=== PATIENT | female | born 1975 | race Caucasian/White ===

== ENCOUNTER 2017-03-19 15:38 | Emergency (ER) | payer MEDICARE, OTHER ==
[2017-03-19 16:26] LABS: #Basophils 0.1 thou/uL (0.0-0.2); #Eosinphils 0.1 thou/uL (0.0-0.7); #Lymphocytes 2.1 thou/uL (1.20-3.40); #Monocytes 0.6 thou/uL (0.11-0.59); #Neutrophils 5.7 thou/uL (1.40-6.50); %Basophils 0.8 % (0.0-1.0); %Eosinophils 1.3 % (0.0-10.0); %Lymphocytes 24.3 % (21.0-51.0); %Monocytes 6.5 % (0.0-10.0); Hematocrit 36.7 % (36.0-47.0); Mean Platelet Volume 9.8 fL (7.4-10.4); Red Blood Cell (RBC) Count 4.77 mill/uL (4.20-5.40); White Blood Cell (WBC) Count 8.5 thou/uL (4.8-10.8)
[2017-03-19 16:45] LABS: ALT (SGPT) Less than 7 U/L (8-55); AST (SGOT) 9 U/L (5-34); Alkaline Phosphatase 82 U/L (40-150); Anion Gap 14 mmol/L (10-20); BUN (Urea Nitrogen) 13 mg/dL (7.0-18.7); Bilirubin, Total 0.3 mg/dL (0.2-1.2); Calc. Creatinine Clearance 0 mL/min (70-130); Calcium 8.9 mg/dL (7.8-10.44); Carbon Dioxide 22 mmol/L (22-29); Chloride 107 mmol/L (98-107); Estimated GFR-MDRD 90; Globulin 3.5 g/dL (2.4-3.5); Protein, Total 7.7 g/dL (6.0-8.3)
[2017-03-19] MEDS ORDERED: Metoclopramide HCl 10 MG/2 ML VIAL ONE (17:51)
[2017-03-19] MEDS ORDERED: Ketorolac Tromethamine 30 MG/ML VIAL ONE (18:38)
[2017-03-19] MEDS ORDERED: Divalproex Sodium DR 500 MG TAB PO SCH (19:30)
== END 2017-03-19 20:08 | disposition home or self-care (01) ==
LOC: ERS 15:38
DX: G40.909 Epilepsy, unspecified, not intractable, without status epilepticus (principal); E11.9 Type 2 diabetes mellitus without complications; F90.9 Attention-deficit hyperactivity disorder, unspecified type; J45.909 Unspecified asthma, uncomplicated
CPT/HCPCS: 36415; 36416; 80053; 80164; 85025; 96361; 96374; 96375; J1885; J2765

== ENCOUNTER 2017-04-14 15:24 | Emergency (ER) | payer MEDICARE, OTHER ==
--- NOTE | 2017-04-14 17:23 | RAD ---
RIGHT HIP 2 VIEWS: Date: 04/14/17 HISTORY: Right hip pain. FINDINGS/IMPRESSION: No fracture, dislocation, or bony destruction is seen. POS: [facility]
[2017-04-14] MEDS ORDERED: Ketorolac Tromethamine 30 MG/ML VIAL ONE (17:24)
--- NOTE | 2017-04-14 17:24 | RAD ---
RIGHT LEG 2 VIEWS: Date: 04/14/17 HISTORY: Right leg pain. FINDINGS/IMPRESSION: The right tibia and fibula are intact. POS: [facility]
== END 2017-04-14 18:05 | disposition home or self-care (01) ==
LOC: ERS 15:24
DX: S73.101A Unspecified sprain of right hip, initial encounter (principal); F90.9 Attention-deficit hyperactivity disorder, unspecified type; J45.909 Unspecified asthma, uncomplicated; E11.9 Type 2 diabetes mellitus without complications; W01.0XXA Fall on same level from slipping, tripping and stumbling without subsequent striking against object, initial encounter
CPT/HCPCS: 96372; J1885

== ENCOUNTER 2017-05-29 20:54 | Emergency (ER) | payer MEDICARE, OTHER ==
[2017-05-29 21:29] LABS: #Basophils 0.1 thou/uL (0.0-0.2); #Eosinphils 0.1 thou/uL (0.0-0.7); #Lymphocytes 2.5 thou/uL (1.20-3.40); #Monocytes 0.8 thou/uL (0.11-0.59); #Neutrophils 12.1 thou/uL (1.40-6.50); %Basophils 0.7 % (0.0-1.0); %Eosinophils 0.7 % (0.0-10.0); %Lymphocytes 16.3 % (21.0-51.0); %Monocytes 5.1 % (0.0-10.0); Hematocrit 38.9 % (36.0-47.0); Red Blood Cell (RBC) Count 4.91 mill/uL (4.20-5.40); White Blood Cell (WBC) Count 15.6 thou/uL (4.8-10.8)
[2017-05-29 21:55] LABS: Prothrombin Time 13.5 SEC (12.0-14.7)
[2017-05-29 21:56] LABS: PTT 25.5 SEC (22.9-36.1)
[2017-05-29 21:56] LABS: ALT (SGPT) 11 U/L (8-55); AST (SGOT) 27 U/L (5-34); Alkaline Phosphatase 75 U/L (40-150); Anion Gap 14 mmol/L (10-20); BUN (Urea Nitrogen) 18 mg/dL (7.0-18.7); Bilirubin, Total 0.2 mg/dL (0.2-1.2); Calc. Creatinine Clearance 0 mL/min (70-130); Calcium 8.8 mg/dL (7.8-10.44); Carbon Dioxide 21 mmol/L (22-29); Chloride 106 mmol/L (98-107); Estimated GFR-MDRD 90; Globulin 3.8 g/dL (2.4-3.5); Protein, Total 7.7 g/dL (6.0-8.3)
[2017-05-29 21:58] LABS: Bilirubin Negative (Negative); Blood, Urine Negative (Negative); Glucose, Urine (Dipstick) Negative (Negative); Ketone, Urine Negative (Negative); Nitrite Negative (Negative); Protein, Urine (Dipstick) Negative (Neg-Trace); Urobilinogen 0.2 mg/dL (0.2-1.0)
[2017-05-29] MEDS ORDERED: Acetaminophen 500 MG TAB ONE (22:47)
== END 2017-05-29 23:36 | disposition home or self-care (01) ==
LOC: ERS 20:54
DX: K60.2 Anal fissure, unspecified (principal); E11.9 Type 2 diabetes mellitus without complications; F84.0 Autistic disorder; J45.909 Unspecified asthma, uncomplicated; F90.9 Attention-deficit hyperactivity disorder, unspecified type; Z86.73 Personal history of transient ischemic attack (TIA), and cerebral infarction without residual deficits
CPT/HCPCS: 36415; 80053; 81003; 81025; 82274; 85025; 85610; 85730; 86850; 86900; 86901; 99283

== ENCOUNTER 2017-06-07 15:45 | Inpatient (IN) | payer MEDICARE, OTHER ==
[2017-06-07 16:33] LABS: #Basophils 0.1 thou/uL (0.0-0.2); #Eosinphils 0.1 thou/uL (0.0-0.7); #Lymphocytes 2.4 thou/uL (1.20-3.40); #Monocytes 0.6 thou/uL (0.11-0.59); #Neutrophils 5.8 thou/uL (1.40-6.50); %Basophils 0.6 % (0.0-1.0); %Eosinophils 1.6 % (0.0-10.0); %Lymphocytes 26.7 % (21.0-51.0); %Monocytes 6.7 % (0.0-10.0); Hematocrit 36.3 % (36.0-47.0); Red Blood Cell (RBC) Count 4.58 mill/uL (4.20-5.40)
[2017-06-07 16:46] LABS: Bilirubin Negative (Negative); Blood, Urine Negative (Negative); Glucose, Urine (Dipstick) Negative (Negative); Ketone, Urine Trace mg/dL (Negative); Nitrite Positive (Negative); Protein, Urine (Dipstick) Negative (Neg-Trace); Urobilinogen 0.2 mg/dL (0.2-1.0)
[2017-06-07 16:48] LABS: Bacteria/HPF 4+ HPF (None Seen); Hyaline Casts/LPF 4-6 HYALINE CAST LPF (0-3 Hyaline)
[2017-06-07 16:52] LABS: Lactic Acid - Sepsis 2.8 mmol/L (0.5-2.2)
[2017-06-07 16:53] LABS: ALT (SGPT) 9 U/L (8-55); AST (SGOT) 9 U/L (5-34); Alkaline Phosphatase 77 U/L (40-150); Anion Gap 13 mmol/L (10-20); BUN (Urea Nitrogen) 16 mg/dL (7.0-18.7); Bilirubin, Total 0.2 mg/dL (0.2-1.2); Calc. Creatinine Clearance 0 mL/min (70-130); Calcium 9.3 mg/dL (7.8-10.44); Carbon Dioxide 24 mmol/L (22-29); Chloride 105 mmol/L (98-107); Estimated GFR-MDRD 90; Globulin 3.7 g/dL (2.4-3.5)
[2017-06-07] MEDS ORDERED: Ondansetron HCl/PF 4 MG/2 ML Vial ONE (17:34)
--- NOTE | 2017-06-07 17:41 | RAD ---
PORTABLE UPRIGHT FRONTAL CHEST RADIOGRAPH: Date: 06/07/17 COMPARISON: 12/12/16. HISTORY: Seizures, abdominal pain. FINDINGS: Lungs are clear. Heart and mediastinal contours unremarkable. IMPRESSION: No acute findings. POS: [facility]
[2017-06-07] MEDS ORDERED: Dextrose 50% Abboject 50 ML SYRINGE SLOW IVP PRN (18:07)
[2017-06-07] MEDS ORDERED: HumaLOG 300 UNITS/3 ML VIAL SC PRN (18:07)
[2017-06-07] MEDS ORDERED: Dextrose 5% in Water 1,000 ML IV PRN (18:07)
[2017-06-07] MEDS ORDERED: cefTRIAXone\\ROCEPHIN 1 GM in Sodium Chloride 0.9% 100 ML IVPB SCH (18:15)
--- NOTE | 2017-06-07 18:35 | CT ---
HEAD CT WITHOUT CONTRAST: Date: 06/07/17 COMPARISON: 06/13/16. HISTORY: Pain, seizure. TECHNIQUE: Serial axial CT imaging at 5 mm intervals from vertex through skull base without contrast. FINDINGS: The imaged paranasal sinuses and mastoid air cells are well aerated. There is no displaced calvarial fracture. There is no intracranial hemorrhage, midline shift, or mass effect. There is stable cerebra l volume loss, most prominent near the vertex. IMPRESSION: Stable head CT as detailed above. No intracranial hemorrhage or displaced calvarial fracture. POS: [facility]
[2017-06-07] MEDS ORDERED: Ketorolac Tromethamine 30 MG/ML VIAL IVP PRN (18:50)
--- NOTE | 2017-06-07 19:27 | HP ---
PRIMARY CARE PHYSICIAN: Juan Carlos Thompson M.D. CHIEF COMPLAINT: Seizures. HISTORY OF PRESENT ILLNESS: Ms. Almazan is a pleasant 41-year-old lady, who was seen at [facility] on 06/07/2017. She was hospitalized at this facility in 12/2016 for possible infected fluid collection in the postoperative hysterectomy patient. She reports that she has a chronic history of seizures. Of late, her seizures have been becoming longer. She reports having 3-4 seizures today. They are now approximately 3-4 minutes each episode, which is longer than usual. She also reports that in the past she could remember what was happening during this seizure and was not confused following the seizure, but of late, she has been forgetting what was happening during the seizures and is unable to recall. She was at [facility] today when she had a seizure. She was helped to the ground by her checkroom attendant and was brought to the emergency room. She also reports dysuria. She reports lower abdominal discomfort, but is unable to characterize it further. REVIEW OF SYSTEMS: The following complete review of systems was negative, unless otherwise mentioned in the HPI or below: Constitutional: Weight loss or gain, sense of well-being, ability to conduct usual activities, exercise tolerance. Skin/Breast: Rash, itching, changes in hair growth or loss, nail changes, breast lumps, tenderness, swelling, nipple discharge. Eyes: Vision, double vision, tearing, blind spots, pain. ENT/Mouth: Headaches (location, time of onset, duration, precipitating factors) , vertigo, lightheadedness, injury. Vision, double vision, tearing, blind spots , pain, nose bleeding, colds, obstruction, discharge, dental difficulties, gingival bleeding, dentures, neck stiffness, pain, tenderness, masses in thyroid or other areas. Cardiovascular: Precordial pain, substernal distress, palpitations, syncope, dyspnea on exertion, orthopnea, nocturnal paroxysmal dyspnea, edema, cyanosis, hypertension, heart murmurs, varicosities, phlebitis, claudication. Respiratory: Pain, shortness of breath, wheezing, stridor, cough, hemoptysis, fever or night sweats. Gastrointestinal: Poor appetite, dysphagia, indigestion, abdominal pain, heartburn, eructation, nausea, vomiting, hematemesis, jaundice, constipation, or diarrhea, abnormal stools (vandana-colored, tarry, bloody, greasy, foul smelling ), flatulence, hemorrhoids, recent changes in bowel habits. Genitourinary: Urgency, frequency, dysuria, nocturia, hematuria, polyuria, oliguria, unusual (or change in) color of urine, stones, hesitancy, change in size of stream, dribbling, acute retention or incontinence, libido, potency. Musculoskeletal: Pain, swelling, redness or heat of muscles or joints, limitation, of motion, muscular weakness, atrophy, cramps. Neurologic/Psychiatric: Convulsions, paralyses, tremor, incoordination, paresthesias, difficulties with memory of speech, sensory or motor disturbances , or muscular coordination (ataxia, tremor), emotional problems, anxiety, depression, previous psychiatric care, unusual perceptions, hallucinations. Allergy/Immunologic: Skin rash, anemia, bleeding tendency, polydipsia, polyuria , intolerance to heat or cold. PAST MEDICAL HISTORY: Significant for seizures, diabetes mellitus type 2, autism and fibromyalgia. PAST SURGICAL HISTORY: Significant for valvular surgery, oophorectomy, appendectomy, tubal ligation, total abdominal hysterectomy and left shoulder rotator cuff surgery repair. SOCIAL HISTORY: She denies any tobacco use, alcohol use or recreational drug use. She lives at home with her sister. ALLERGIES: ACETAMINOPHEN and OXYCONTIN. FAMILY HISTORY: Father from diabetes mellitus. CURRENT MEDICATIONS: These include Glucophage 500 mg 2 times a day, Bentyl 20 mg every 8 hours as needed, Colace 100 mg 2 times a day, albuterol 2 puffs every 4 hours as needed, Valium 10 mg every 8 hours as needed, Trileptal 300 mg 2 times a day. Please note that she reports that she has been on Trileptal only for the last few weeks. Her seizure medications are being changed because of worsening seizures. PHYSICAL EXAMINATION: GENERAL: Ms. Almazan is awake and alert, not in acute distress. VITAL SIGNS: Blood pressure is 110/63, pulse is 85. She is breathing at rate of 20 and saturating 100% on room air. She is afebrile. EYES: No scleral icterus, no conjunctival pallor. ENT: Moist mucosal membranes, no oropharyngeal erythema or exudates. NECK: Supple, nontender, normal range of movement. Trachea is midline. RESPIRATORY: Accessory muscles of breathing are not active. Chest wall movements are symmetric bilaterally. LUNGS: Clear to auscultation without wheeze, rhonchi or crepitations. CARDIOVASCULAR: S1 and S2 are heard, regular. Peripheral pulses palpable. No carotid bruit, no pericardial rub. ABDOMEN: Soft, nontender, bowel sounds heard, no hepatomegaly, no splenomegaly. NEUROLOGIC: Cranial nerves II-XII are intact. Deep tendon reflexes are 2+. SKIN: No rashes or subcutaneous nodules. MUSCULOSKELETAL: Power is 5/5 in all 4 extremities, normal range of movement at all major extremity joints. SKIN: No rashes or subcutaneous nodules. LYMPHATIC: No cervical lymphadenopathy. PSYCHIATRIC: Normal mood, normal affect, patient is oriented to person, place, and time. LABORATORY DATA: Ms. Almazan's labs and investigations were reviewed. I reviewed her chest x-ray, which does not show any pulmonary infiltrates. She also had a plain CT scan of the brain, which was stable. Laboratory investigation showed normal white count, normal platelet count, decreased hemoglobin of 11.4, normal sodium, decreased potassium of 3.3, normal creatinine , unremarkable liver profile, elevated lactic acid level of 2.8, normal lipase. Her carbamazepine level is less than 1.9. Her oxcarbazepine level is pending. Urinalysis is positive for ketones and nitrite. Urine test is negative. ASSESSMENT AND PLAN: Ms. Almazan is a pleasant 41-year-old lady who was seen at [facility] on 06/07/2017. Her problem list includes: 1. Seizures: Apparently, her seizures have been worsening. We will admit her to the hospital and request Neurology Service consult. We will also request an EEG. We will continue with seizure precautions. We will continue her current medications for now. 2. Urinary tract infection: Start ceftriaxone, follow urine cultures. 3. Diabetes mellitus: Start Accu-Cheks, insulin sliding scale. 4. Autism: Stable. Many thanks for allowing me to participate in your patient's care. Please feel free to contact me with any questions or concerns. LEVEL OF RISK: Moderate. LEVEL OF COMPLEXITY: Moderate. MTDD
[2017-06-07] MEDS ORDERED: FLU VACC QS2017-18 36 mo. & older 0.5 ML SYRINGE IM ONE (20:30)
[2017-06-08 05:09] LABS: #Basophils 0.1 thou/uL (0.0-0.2); #Eosinphils 0.2 thou/uL (0.0-0.7); #Lymphocytes 2.1 thou/uL (1.20-3.40); #Monocytes 0.6 thou/uL (0.11-0.59); #Neutrophils 4.5 thou/uL (1.40-6.50); %Basophils 0.7 % (0.0-1.0); %Eosinophils 2.7 % (0.0-10.0); %Lymphocytes 28.4 % (21.0-51.0); %Monocytes 8.3 % (0.0-10.0); Hematocrit 31.3 % (36.0-47.0); Mean Platelet Volume 9.6 fL (7.4-10.4); White Blood Cell (WBC) Count 7.5 thou/uL (4.8-10.8)
[2017-06-08 05:33] LABS: Anion Gap 10 mmol/L (10-20); BUN (Urea Nitrogen) 18 mg/dL (7.0-18.7); Calc. Creatinine Clearance 201 mL/min (70-130); Calcium 8.1 mg/dL (7.8-10.44); Carbon Dioxide 23 mmol/L (22-29); Chloride 109 mmol/L (98-107); Estimated GFR-MDRD Greater than 90
[2017-06-08] MEDS: Enoxaparin Sodium 40 MG/0.4 ML SYRINGE SC SCH (08:21)
[2017-06-08] MEDS ORDERED: tiZANidine HCl 4 MG TAB PO PRN (10:13)
[2017-06-08] MEDS ORDERED: PROVENTIL INHALER 6.7 G (200 INHALATIONS) INH PRN (10:13)
[2017-06-08] MEDS ORDERED: CeleCOXIB 100 MG CAP PO PRN (10:30)
--- NOTE | 2017-06-08 12:25 | PDOC.PN ---
- Subjective Encounter Start Date: 06/08/17 Encounter Start Time: 07:40 Pt seen for followup re: seizures. Reports having three seizures today. No fevers or chills. - Objective Vital Signs & Weight: Vital Signs (12 hours) Temp Pulse Resp BP Pulse Ox 06/08/17 11:50 98.5 F 83 16 119/58 L 96 06/08/17 07:55 98.7 F 82 16 112/69 98 06/08/17 05:14 98.5 F 76 16 106/56 L 98 Weight Weight 227 lb I&O: 06/07/17 06/08/17 06/09/17 06:59 06:59 06:59 Intake Total 240 Balance 240 Result Diagrams: 06/08/17 04:53 06/08/17 04:53 Additional Labs: Accuchecks 06/08/17 06/08/17 06/07/17 10:53 06:25 20:35 POC Glucose 92 101 97 EKG Reviewed by me: Yes (Tele: NSR) Phys Exam - Physical Examination Morbid obesity HEENT: PERRLA, moist MMs, sclera anicteric, oral pharynx no lesions Neck: no nodes, no JVD, supple, full ROM Respiratory: no wheezing, no rales, no rhonchi, clear to auscultation bilateral Cardiovascular: RRR, no rub Gastrointestinal: soft, non-tender, no distention, positive bowel sounds Musculoskeletal: pulses present Neurological: moves all 4 limbs Lymphatic: no nodes Psychiatric: normal affect Deviation from normal: Oriented to person and place, not to time Skin: no rash, normal turgor, cap refill <2 seconds Dx/Plan (1) Seizure Code(s): R56.9 - UNSPECIFIED CONVULSIONS Status: Acute (2) UTI (urinary tract infection) Status: Acute (3) Asthma Code(s): J45.909 - UNSPECIFIED ASTHMA, UNCOMPLICATED Status: Chronic (4) Autism Code(s): F84.0 - AUTISTIC DISORDER Status: Chronic (5) DM type 2 (diabetes mellitus, type 2) Status: Chronic Qualifiers: (6) GERD (gastroesophageal reflux disease) Code(s): K21.9 - GASTRO-ESOPHAGEAL REFLUX DISEASE WITHOUT ESOPHAGITIS Status: Chronic (7) Morbid obesity with BMI of 40.0-44.9, adult Code(s): E66.01 - MORBID (SEVERE) OBESITY DUE TO EXCESS CALORIES; Z68.41 - BODY MASS INDEX (BMI) 40.0-44.9, ADULT Status: Chronic - Plan continue antibiotics, PT/OT, out of bed/ambulate, DVT proph w/lovenox * . Continue IV antibiotics, await cultures. Await EEG report, neurology consult. Continue accuchecks, insulin. Monitor vital signs, titrate antihypertensives as needed. Review of Systems - Review of Systems Constitutional: negative: Fever, Chills, Sweats, Weakness, Malaise Respiratory: negative: Cough, Dry, Shortness of Breath, Hemoptysis, SOB with Excertion, Pleuritic Pain, Sputum, Wheezing Cardiovascular: negative: Chest Pain, Palpitations, Orthopnea, Paroxysmal Noc. Dyspnea, Edema, Light Headedness Gastrointestinal: negative: Nausea, Vomiting, Abdominal Pain, Diarrhea, Constipation, Melena, Hematochezia Skin: negative: Rash, Lesions, Lon, Bruising Neurological: Seizures. negative: Weakness, Numbness, Incoordination, Change in Speech, Confusion - Medications/Allergies Allergies/Adverse Reactions: Allergies Allergy/AdvReac Type Severity Reaction Status Date / Time nitrofurantoin Allergy Verified 06/07/17 19:51 [From Macrobid] strawberry Allergy Verified 06/07/17 19:51 acetaminophen [From Percocet] AdvReac Verified 06/07/17 19:51 oxycodone HCl [From Percocet] AdvReac Emesis Verified 06/07/17 19:51 Medications: Current Medications Albuterol Sulfate (Proventil Hfa) 2 puff INH Q4H PRN PRN Reason: Dyspnea/Wheezing/SOB Amitriptyline HCl (Elavil) 10 mg PO QPM PRN PRN Reason: NERVE PAIN Beclomethasone Dipropionate (Qvar) 2 puff INH BID-RT IMLANA Celecoxib (Celebrex) 200 mg PO BIDPRN PRN PRN Reason: Pain Dextrose/Water (Dextrose 50%) 25 gm SLOW IVP PRN PRN PRN Reason: Hypoglycemia Divalproex Sodium (Depakote) 500 mg PO BID COUNTS INCLUDE 234 BEDS AT THE [facility] Enoxaparin Sodium (Lovenox) 40 mg SC 0900 COUNTS INCLUDE 234 BEDS AT THE [facility] Last Admin: 06/08/17 08:21 Dose: 40 mg Fluticasone Propionate (Flonase Nasal [place]) 0 gm NASAL DAILY COUNTS INCLUDE 234 BEDS AT THE [facility] Glucagon (Glucagon) 1 mg IM PRN PRN PRN Reason: Hypoglycemia Dextrose/Water (D5w) 1,000 mls @ 0 mls/hr IV .Q0M PRN; As Directed PRN Reason: Hypoglycemia Ceftriaxone Sodium 1 gm/ (Syringe 0.4 ml/ Sterile Water) 10 mls @ 120 mls/hr SLOW IVP 1800 MILANA Insulin Human Lispro (Humalog) 0 units SC .MILD SLIDING SCALE PRN PRN Reason: Mild Correctional Scale Ketorolac Tromethamine (Toradol) 15 mg IVP Q6H PRN PRN Reason: Pain Stop: 06/12/17 18:51 Metformin HCl (Glucophage) 500 mg PO BID-[facility] Oxcarbazepine (Trileptal) 300 mg PO BID COUNTS INCLUDE 234 BEDS AT THE [facility] Pantoprazole Sodium (Protonix) 40 mg PO DAILY COUNTS INCLUDE 234 BEDS AT THE [facility] Butalbital- Acetaminophn 50-300 [Hm Med] 0 each PO BID PRN PRN Reason: Headache Promethazine HCl (Phenergan) 25 mg PO Q8H PRN PRN Reason: Nausea Tizanidine HCl (Zanaflex) 4 mg PO QID PRN PRN Reason: pain/muscle spasms
[2017-06-08 12:36] VITALS: BMI 45.8
[2017-06-08] MEDS ORDERED: Fioricet 325/50/40 mg Tablet PO PRN (17:38)
[2017-06-08] MEDS ORDERED: cefTRIAXone\\ROCEPHIN 1 GM, Syringe 0.4 ML in Sterile Water 9.6 ML SLOW IVP SCH (18:00)
[2017-06-08] MEDS ORDERED: Beclomethasone 40 mcg 120 PUFF/8.7 GM INH INH SCH (18:30)
[2017-06-08] MEDS ORDERED: Amitriptyline HCl 10 MG TAB PO PRN (21:00)
[2017-06-08] MEDS ORDERED: OXcarbazepine 150 MG TAB PO SCH (21:00)
[2017-06-08] MEDS ORDERED: Mometasone 100 MCG HFA INHALER INH SCH (21:30)
[2017-06-08] MEDS: OXcarbazepine 300 MG TAB PO SCH (21:39)
[2017-06-08] MEDS: Divalproex Sodium DR 500 MG TAB PO SCH (22:52)
[2017-06-09 04:51] LABS: #Eosinphils 0.2 thou/uL (0.0-0.7); #Lymphocytes 2.2 thou/uL (1.20-3.40); #Monocytes 0.6 thou/uL (0.11-0.59); #Neutrophils 4.5 thou/uL (1.40-6.50); %Basophils 0.6 % (0.0-1.0); %Eosinophils 2.6 % (0.0-10.0); %Lymphocytes 29.2 % (21.0-51.0); %Monocytes 8.2 % (0.0-10.0); Hematocrit 30.7 % (36.0-47.0); Mean Platelet Volume 10.3 fL (7.4-10.4); Red Blood Cell (RBC) Count 3.83 mill/uL (4.20-5.40); White Blood Cell (WBC) Count 7.5 thou/uL (4.8-10.8)
[2017-06-09 05:05] LABS: Anion Gap 11 mmol/L (10-20); BUN (Urea Nitrogen) 16 mg/dL (7.0-18.7); Calc. Creatinine Clearance 198 mL/min (70-130); Calcium 7.8 mg/dL (7.8-10.44); Carbon Dioxide 21 mmol/L (22-29); Chloride 108 mmol/L (98-107); Estimated GFR-MDRD Greater than 90
--- NOTE | 2017-06-09 06:07 | CON ---
DATE OF CONSULTATION: 06/08/2017 REFERRING PHYSICIAN: Dr. Jovani Thomas. REASON FOR CONSULTATION: Seizures. HISTORY OF PRESENT ILLNESS: Ms. Almazan is a pleasant 41-year-old female who has been concer carito for evaluation of seizures. History is obtained from the patient. She reports that she has a hi story of seizures since . She had complications with with umbilical cord wrapped around h er, which resulted in hypoxic injury. She has been on Depakote since and has done well. She r eports that recently she has been having increasing episodes of seizures. She sees Dr. Cyr in [facility] as her neurologist. Recently, Dr. Cyr has discontinued her Depakote as it w as not helping with the seizures and she was started on Trileptal for seizure prevention. She states that she has 2 types of seizures, one is the grand mal seizures and the other is stress induced seiz ures. Her grandmother seizures did describe it as without any preictal aura followed by loss of cons ciousness and generalized tonic clonic convulsions lasting 2-3 minutes followed by postictal confusio n. She describes her stress seizures as feeling of right-sided numbness when she is under a lot of s tress followed by convulsions while she is awake. She is able to recall the event that place during that time. She had recurrent episodes of seizures on yesterday, which prompted her to call the EMS a nd presented to the [place] [facility]. PAST MEDICAL HISTORY: Significant for diabetes, autism, fibromyalgia, and seizure disorder. PAST SURGICAL HISTORY: Significant for valvular surgery, oophorectomy, appendectomy, tubal ligation, total abdominal hysterectomy, and left shoulder rotator cuff surgery. SOCIAL HISTORY: She denies smoking, alcohol use, or illicit drug use. She lives with her sister at her home. FAMILY HISTORY: Noncontributory. CURRENT MEDICATIONS: Please review MAR. ALLERGIES: Include ACETAMINOPHEN and OXYTOCIN. REVIEW OF SYSTEMS: As mentioned in the HPI, otherwise negative. PHYSICAL EXAMINATION: VITAL SIGNS: Blood pressure 123/66, pulse is 77, temperature of 98.6, respirations of 16, O2 sats of 98% on room air. GENERAL: Well-developed, well-nourished female in no apparent distress. RESPIRATORY: Clear to auscultation bilaterally. CARDIOVASCULAR: Regular rate and rhythm. NEUROLOGIC: Mental status: The patient is awake, alert, oriented x3. Speech and language: Fluent speech. Cranial nerves: Pupils are 3 mm and reactive. She is legally blind in the left eye. She h as a right exotropia with partial right third nerve palsy. Face appears symmetric. Tongue and uvula are midline. Motor exam showed normal tone and bulk with 5/5 strength in upper extremities ex cept left upper and left lower extremity with 4/5 strength, which is chronic according to her. Senso ry: Sensation is intact and symmetric. Deep tendon reflexes 2+ reflexes in both upper and lower ext remities. Babinski: Plantar responses flexion bilaterally. Coordination intact to [id number] er tapping bilaterally. LABORATORY DATA: Reviewed, which included CBC, CMP, lactic acid, urinalysis and carbamazepine level, which is significant for hemoglobin 9.9, hematocrit 31.3, potassium of 3.3. Urinalysis showed 4-6 w bc with 4+ bacteria, positive nitrites. Current vitamin level was less than 1.9. IMAGING STUDIES: CT head without contrast was reviewed, which showed no acute intracranial abnormali ty. IMPRESSION: 1. Stroke and seizure. 2. Pseudoseizure. 3. Urinary tract infection. Ms. Almazan is a pleasant 41-year-old female who presented with recurrent episodes of seizure s. She had EEG done today during which she had 2 habitual spells during which time EEG remained norm al, this would likely start suggest underlying pseudoseizures. At this time, I would recommend sandy nuing her current medical management. I would recommend her to follow up with her neurologist in [place] for further treatment plan. No further neurological workup needed from my standpoint. Thank you for your consultation.
[2017-06-09] MEDS ORDERED: Mometasone 100 MCG HFA INHALER INH SCH (06:30)
[2017-06-09] MEDS ORDERED: Fluticasone Propionate Nasal Spray 16 gm Bottle NASAL SCH (09:00)
[2017-06-09] MEDS: Divalproex Sodium DR 500 MG TAB PO SCH (09:37)
[2017-06-09] MEDS: Enoxaparin Sodium 40 MG/0.4 ML SYRINGE SC SCH (09:38)
[2017-06-09] MEDS: OXcarbazepine 300 MG TAB PO SCH (09:45)
[2017-06-09] MEDS ORDERED: Sulfameth/Trimethoprim DS 800-160mg TAB PO SCH ×2 (11:45→21:00)
[2017-06-09 11:54] VITALS: BP 96/46; TEMP 98.7
--- NOTE | 2017-06-09 12:59 | EKG ---
Test Reason : Blood Pressure : / mmHG Vent. Rate : 081 BPM Atrial Rate : 081 BPM P-R Int : 128 ms QRS Dur : 074 ms QT Int : 402 ms P-R-T Axes : 042 047 063 degrees QTc Int : 466 ms Normal sinus rhythm Normal ECG Confirmed by JENNIFFER DOWNS ([id number]), manager editorial MAYCO TIHBODEAUX ([id number]) on 06/09/2017 12:58:45 PM Referred By: Confirmed By:JENNIFFER DOWNS
[2017-06-09] MEDS ORDERED: Potassium Chloride 20 MEQ TAB PO SCH (13:15)
--- NOTE | 2017-06-09 13:30 | DIS ---
PRIMARY CARE PHYSICIAN: Dr. Juan Carlos Thompson DATE OF ADMISSION: 06/07/2017 DATE OF DISCHARGE: 06/09/2017 DISCHARGE DIAGNOSES: 1. Urinary tract infection with Escherichia coli, organism pansensitive. 2. Recurrent episodes of seizures, EEG was suggestive of underlying pseudoseizures. CONDITION OF PATIENT AT THE TIME OF DISCHARGE: Stable. I assessed Ms. Almazan on the day of discharge. She denies any chest pain or shortness of breath. Vit al signs are stable. S1 and S2 are heard, regular. Lungs are clear to auscultation bilaterally. DISCHARGE MEDICATIONS: Ventolin HFA p.r.n., Ventolin nebulizers p.r.n., amitriptyline 10 mg daily, Q jaz 2 puffs 2 times a day, butalbital/acetaminophen 1 tablet as needed every 12 hours, Celecoxib 200 mg 2 times a day as needed, divalproex 500 mg 2 times a day, Flonase nasal spray, 1 spray to each richard is daily, metformin 500 mg 2 times a day, omeprazole 40 mg daily, Trileptal 300 mg 2 times a day, Pro methazine 25 mg every 8 hours as needed, Zanaflex 4 mg 4 times a day as needed, Bactrim DS 1 tablet 2 times a day for 1 week. HOSPITAL COURSE: Ms. Almazan is a pleasant 41-year-old lady who was admitted to [facility] on 06/07/2017 for recurrent seizures as well as urinary tract infection. She had an EEG done during this hospitalization, which was suggestive of underlying pseudoseizures. She was seen by Neurology Service, Dr. Lia Lala. She improved with antibiotics given to treat the urinary tract infection. She is being discharged ho md on oral antibiotics. She is advised to follow up with her primary care provider as well as with her neurologist as outpati ent. On the day of discharge, she has a sodium 137, potassium 3.2, which is being replaced, creatinine 0.6 2, white count 7500, hemoglobin 9.6, and platelet count 165,000. Many thanks for allowing me to participate in your patient's care. Please feel free to contact me wi th any questions or concerns. DISCHARGE DESTINATION: Home. TOTAL AMOUNT OF TIME SPENT COORDINATING THIS DISCHARGE: 33 minutes.
[2017-06-10] MEDS ORDERED: metFORMIN 500 MG TAB PO SCH (08:00)
== END 2017-06-09 13:32 | disposition home health service (06) | DRG 101 ==
LOC: ERS 15:45 → 2SE 17:00
PROVIDERS: ADMIT Internal Medicine; ATTEND Internal Medicine
DX: G40.909 Epilepsy, unspecified, not intractable, without status epilepticus (principal); E66.01 Morbid (severe) obesity due to excess calories; N39.0 Urinary tract infection, site not specified; F84.0 Autistic disorder; E11.9 Type 2 diabetes mellitus without complications; B96.20 Unspecified Escherichia coli [E. coli] as the cause of diseases classified elsewhere; K21.9 Gastro-esophageal reflux disease without esophagitis; Z68.42 Body mass index [BMI] 45.0-49.9, adult; M79.7 Fibromyalgia
CPT/HCPCS: 36415; 36416; 70450; 71010; 80048; 80053; 80156; 80183; 81003; 81015; 81025; 83605; 83690; 85025; 87077; 87086; 87186; 90471; 90682; 90732; 93005; 94664; 95816; 95819; 96361; 96374; 96375; A4216; G0008; G0009; J0696; J1650; J1885; J2405; Q2036

== ENCOUNTER 2017-08-04 13:46 | Emergency (ER) | payer MEDICARE, OTHER ==
[2017-08-04 14:41] LABS: Bilirubin Negative (Negative); Blood, Urine Negative (Negative); Clarity CLOUDY (Clear); Glucose, Urine (Dipstick) Negative (Negative); Leukocyte Small (Negative); Nitrite Positive (Negative); Protein, Urine (Dipstick) Negative (Neg-Trace); Specific Gravity, Urine 1.022 (1.002-1.036); pH, Urine 7.5 (5.0-9.0)
[2017-08-04 14:44] LABS: Bacteria/HPF 4+ HPF (None Seen); Hyaline Casts/LPF 0-3 HYALINE CAST LPF (0-3 Hyaline); Pathc Cast-AUWi Flag 0.13 (0-2.49); RBC/HPF 0-3 HPF (0-3)
[2017-08-04 14:53] LABS: #Basophils 0.1 thou/uL (0.0-0.2); #Eosinphils 0.2 thou/uL (0.0-0.7); #Lymphocytes 2.3 thou/uL (1.20-3.40); #Monocytes 0.6 thou/uL (0.11-0.59); #Neutrophils 4.8 thou/uL (1.40-6.50); %Basophils 1.2 % (0.0-1.0); %Eosinophils 2.4 % (0.0-10.0); %Lymphocytes 28.9 % (21.0-51.0); %Monocytes 7.4 % (0.0-10.0); %Neutrophils 60.2 % (42.0-75.0); Hemoglobin 11.3 g/dL (12.0-16.0); Mean Corpuscular HGB CONC 31.5 g/dL (32.0-36.0); Mean Corpuscular Hemoglobin 24.9 pg (27.0-31.0); Mean Corpuscular Volume 79.1 fl (81.0-99.0); Mean Platelet Volume 9.6 fL (7.4-10.4); Platelet Count 207 thou/uL (130-400); RBC Distribution Width 15.8 % (11.5-14.5); Red Blood Cell (RBC) Count 4.51 mill/uL (4.20-5.40); White Blood Cell (WBC) Count 7.9 thou/uL (4.8-10.8)
[2017-08-04 15:15] LABS: ALT (SGPT) 11 U/L (8-55); AST (SGOT) 11 U/L (5-34); Alkaline Phosphatase 89 U/L (40-150); Anion Gap 11 mmol/L (10-20); BUN (Urea Nitrogen) 15 mg/dL (7.0-18.7); Bilirubin, Total 0.3 mg/dL (0.2-1.2); Calc. Creatinine Clearance 0 mL/min (70-130); Calcium 8.4 mg/dL (7.8-10.44); Carbon Dioxide 24 mmol/L (22-29); Chloride 106 mmol/L (98-107); Estimated GFR-MDRD 64; Globulin 3.2 g/dL (2.4-3.5); Glucose 85 mg/dL (70-105); Lipase 12 U/L (8-78); Potassium 3.8 mmol/L (3.5-5.1); Protein, Total 7.2 g/dL (6.0-8.3); Sodium 137 mmol/L (136-145)
[2017-08-04] MEDS ORDERED: Metoclopramide HCl 10 MG/2 ML VIAL ONE (16:44)
--- NOTE | 2017-08-04 17:14 | RAD ---
CHEST ONE VIEW: 08/04/17 HISTORY: 41-year-old female with history of nausea, vomiting, diarrhea, cough and congestion for several days. COMPARISON: 06/07/17. Heart size is normal. The lungs are clear. IMPRESSION: No acute intrathoracic disease. No evidence of pneumonia. POS: [facility]
== END 2017-08-04 19:11 | disposition home or self-care (01) ==
LOC: ERS 13:46
DX: E86.0 Dehydration (principal); B34.9 Viral infection, unspecified; E11.9 Type 2 diabetes mellitus without complications; M79.1 Myalgia; F84.0 Autistic disorder; J45.909 Unspecified asthma, uncomplicated; F90.9 Attention-deficit hyperactivity disorder, unspecified type
CPT/HCPCS: 36415; 71045; 80053; 81003; 81015; 83690; 85025; 87077; 87086; 87186; 87804; 96361; 96374; J2765

== ENCOUNTER 2017-10-09 18:32 | Emergency (ER) | payer MEDICARE, OTHER ==
[2017-10-09 19:19] LABS: Bilirubin Negative (Negative); Blood, Urine Negative (Negative); Clarity CLOUDY (Clear); Glucose, Urine (Dipstick) Negative (Negative); Leukocyte Negative (Negative); Nitrite Negative (Negative); Protein, Urine (Dipstick) Negative (Neg-Trace); Specific Gravity, Urine 1.023 (1.002-1.036); Urobilinogen 0.2 mg/dL (0.2-1.0)
[2017-10-09 19:19] LABS: #Basophils 0.1 thou/uL (0.0-0.2); #Eosinphils 0.1 thou/uL (0.0-0.7); #Lymphocytes 2.8 thou/uL (1.20-3.40); #Monocytes 0.6 thou/uL (0.11-0.59); #Neutrophils 5.2 thou/uL (1.40-6.50); %Basophils 0.7 % (0.0-1.0); %Eosinophils 1.1 % (0.0-10.0); %Lymphocytes 32.1 % (21.0-51.0); %Monocytes 6.8 % (0.0-10.0); %Neutrophils 59.2 % (42.0-75.0); Hemoglobin 11.6 g/dL (12.0-16.0); Mean Corpuscular HGB CONC 32.9 g/dL (32.0-36.0); Mean Corpuscular Hemoglobin 25.7 pg (27.0-31.0); Mean Corpuscular Volume 78.1 fl (81.0-99.0); Mean Platelet Volume 9.3 fL (7.4-10.4); Platelet Count 231 thou/uL (130-400); RBC Distribution Width 15.8 % (11.5-14.5); Red Blood Cell (RBC) Count 4.51 mill/uL (4.20-5.40); White Blood Cell (WBC) Count 8.8 thou/uL (4.8-10.8)
[2017-10-09 19:23] LABS: Pregnancy Test - Urine (BHCG) Negative (Negative); Pregu Control Background? CLEAR/WHITE (CLR/WHITE); Pregu Control Bar Appear? YES (CONTROL BAR); Specific Gravity 1.023 (1.002-1.036)
[2017-10-09 19:42] LABS: ALT (SGPT) 9 U/L (8-55); AST (SGOT) 10 U/L (5-34); Albumin 4.2 g/dL (3.5-5.0); Alkaline Phosphatase 84 U/L (40-150); Anion Gap 14 mmol/L (10-20); BUN (Urea Nitrogen) 15 mg/dL (7.0-18.7); Bilirubin, Total Less than 0.2 mg/dL (0.2-1.2); Calc. Creatinine Clearance 0 mL/min (70-130); Carbon Dioxide 25 mmol/L (22-29); Chloride 104 mmol/L (98-107); Estimated GFR-MDRD Greater than 90; Globulin 3.2 g/dL (2.4-3.5); Glucose 105 mg/dL (70-105); Potassium 3.8 mmol/L (3.5-5.1); Protein, Total 7.4 g/dL (6.0-8.3); Sodium 139 mmol/L (136-145)
[2017-10-09] MEDS ORDERED: Ondansetron ODT 4 MG TAB ONE (20:11)
[2017-10-09] MEDS ORDERED: Morphine 4 MG/ML VIAL ONE (20:11)
--- NOTE | 2017-10-09 22:01 | CT ---
CT OF THE ABDOMEN AND PELVIS WITHOUT CONTRAST: 10/09/17 COMPARISON: None. HISTORY: Right lower quadrant abdominal pain and vomiting since this morning. TECHNIQUE: Multiple contiguous axial images were obtained in a CT of the abdomen and pelvis without contrast. Co joana reformats were performed. FINDINGS: The liver, gallbladder, kidneys, adrenal glands, spleen, and pancreas are unremarkable although evalu ation is limited on this noncontrast examination. No calcifications are seen in either kidney. No radha e air, free fluid, or stranding changes are seen in the abdomen or pelvis. The patient is status post hysterectomy. The large and small bowel are unremarkable. The appendix is normal. No abdominal or pelvic lymphadenopathy are seen. Degenerative changes are seen in the spine. The visualized inferior thorax and abdominal wall soft ti ssues are unremarkable. IMPRESSION: No evidence of acute intra-abdominal/pelvic abnormality. POS: [facility]
== END 2017-10-09 21:35 | disposition home or self-care (01) ==
LOC: ERS 18:32
DX: R10.31 Right lower quadrant pain (principal); E11.9 Type 2 diabetes mellitus without complications; F84.0 Autistic disorder; J45.909 Unspecified asthma, uncomplicated; G40.909 Epilepsy, unspecified, not intractable, without status epilepticus; F90.9 Attention-deficit hyperactivity disorder, unspecified type; Z86.73 Personal history of transient ischemic attack (TIA), and cerebral infarction without residual deficits
CPT/HCPCS: 36415; 74176; 80053; 81003; 81025; 85025; 96374; J2270; Q0162

== ENCOUNTER 2017-12-21 13:06 | Emergency (ER) | payer MEDICARE, OTHER ==
--- NOTE | 2017-12-21 14:47 | CT ---
BRAIN CT WIHTOUT IV COTNRAST: HISTORY: A 42-year-old female with a history of seizures. Hit her head following a slip down stairs with blur ry vision. COMPARISON: 06/07/17. FINDINGS: Bilateral atrophy, prominent for age. No evidence for intra- or extraaxial hemorrhage. No mass or m idline shift. Sinuses and mastoids are clear. Stable from prior study. IMPRESSION: Stable bilateral atrophy. No mass or bleed or other acute process. POS: [facility]
[2017-12-21 15:56] LABS: #Eosinphils 0.2 thou/uL (0.0-0.7); #Lymphocytes 2.1 thou/uL (1.20-3.40); #Monocytes 0.6 thou/uL (0.11-0.59); #Neutrophils 6.4 thou/uL (1.40-6.50); %Basophils 0.5 % (0.0-1.0); %Eosinophils 1.7 % (0.0-10.0); %Lymphocytes 22.5 % (21.0-51.0); %Neutrophils 69.3 % (42.0-75.0); Hemoglobin 11.9 g/dL (12.0-16.0); Mean Corpuscular HGB CONC 32.5 g/dL (32.0-36.0); Mean Corpuscular Hemoglobin 26.1 pg (27.0-31.0); Mean Corpuscular Volume 80.5 fL (78.0-98.0); Mean Platelet Volume 10.6 fL (7.4-10.4); Platelet Count 182 thou/uL (130-400); RBC Distribution Width 15.5 % (11.5-14.5); Red Blood Cell (RBC) Count 4.56 mill/uL (4.20-5.40); White Blood Cell (WBC) Count 9.2 thou/uL (4.8-10.8)
[2017-12-21 16:12] LABS: ALT (SGPT) 10 U/L (8-55); AST (SGOT) 23 U/L (5-34); Albumin 3.9 g/dL (3.5-5.0); Alkaline Phosphatase 70 U/L (40-150); Anion Gap 15 mmol/L (10-20); BUN (Urea Nitrogen) 16 mg/dL (7.0-18.7); Bilirubin, Total 0.2 mg/dL (0.2-1.2); Calc. Creatinine Clearance 0 mL/min (70-130); Calcium 8.5 mg/dL (7.8-10.44); Carbon Dioxide 17 mmol/L (22-29); Chloride 108 mmol/L (98-107); Estimated GFR-MDRD Greater than 90; Globulin 3.5 g/dL (2.4-3.5); Glucose 98 mg/dL (70-105); Potassium 5.3 mmol/L (3.5-5.1); Protein, Total 7.4 g/dL (6.0-8.3); Sodium 135 mmol/L (136-145)
[2017-12-21 16:17] LABS: Bilirubin Negative (Negative); Blood, Urine Negative (Negative); Clarity CLOUDY (Clear); Glucose, Urine (Dipstick) Negative (Negative); Leukocyte Trace (Negative); Nitrite Positive (Negative); Protein, Urine (Dipstick) Negative (Neg-Trace); Specific Gravity, Urine 1.025 (1.002-1.036); pH, Urine 6.5 (5.0-9.0)
[2017-12-21] MEDS ORDERED: Ibuprofen 200 MG TAB ONE (16:37)
[2017-12-21 16:46] LABS: Bacteria/HPF 2+ HPF (None Seen); Hyaline Casts/LPF NONE SEEN LPF (0-3 Hyaline); RBC/HPF None Seen HPF (0-3); Squamous Epithelial 0-3 HPF (0-3); WBC/HPF None Seen HPF (0-3)
[2017-12-21] MEDS ORDERED: cefTRIAXone\\ROCEPHIN 1 GM VIAL ONE (17:18)
[2017-12-21] MEDS ORDERED: Ondansetron ODT 4 MG TAB ONE (17:18)
[2017-12-21] MEDS ORDERED: cefTRIAXone\\ROCEPHIN 1 GM in Sodium Chloride 0.9% 100 ML IVPB ONE (17:30)
[2017-12-21] MEDS ORDERED: Fentanyl 100 MCG/2 ML VIAL ONE (17:51)
--- NOTE | 2017-12-21 18:02 | CT ---
CT CERVICAL SPINE NONCONTRAST: HISTORY: A 42-year-old female status post acute cervical trauma from fall due to seizure. FINDINGS: There are no jumped or perched facets. There is no evidence of acute fracture. The vertebral body h eights are maintained. There is no prevertebral soft tissue swelling. IMPRESSION: No evidence of acute fracture or acute traumatic subluxation. gilberto [] POS: [facility]
== END 2017-12-21 19:20 | disposition home or self-care (01) ==
LOC: ERS 13:06
DX: G40.909 Epilepsy, unspecified, not intractable, without status epilepticus (principal); N39.0 Urinary tract infection, site not specified; E11.9 Type 2 diabetes mellitus without complications; J45.909 Unspecified asthma, uncomplicated; F90.9 Attention-deficit hyperactivity disorder, unspecified type; F84.0 Autistic disorder; Z86.73 Personal history of transient ischemic attack (TIA), and cerebral infarction without residual deficits
CPT/HCPCS: 36415; 70450; 72125; 80053; 81003; 81015; 84146; 85025; 87077; 87086; 87186; 96374; 96375; J0696; J3010; J7050; Q0162

== ENCOUNTER → 2018-03-18 | Day surgery (SDC) | payer MEDICARE, OTHER | LOC: ENDO/OP 08:08 | PROVIDERS: ATTEND Internal Medicine Gastroenterology | DX: R13.10 Dysphagia, unspecified (principal); K21.0 Gastro-esophageal reflux disease with esophagitis; K22.70 Barrett's esophagus without dysplasia; K44.9 Diaphragmatic hernia without obstruction or gangrene; Z79.84 Long term (current) use of oral hypoglycemic drugs; Z79.899 Other long term (current) drug therapy; Z91.018 Allergy to other foods; Z91.041 Radiographic dye allergy status; Z88.1 Allergy status to other antibiotic agents; Z88.5 Allergy status to narcotic agent | CPT/HCPCS: 91010 ==

== ENCOUNTER 2018-03-27 12:52 | Inpatient (IN) | payer MEDICARE, OTHER ==
[2018-03-27 13:45] LABS: #Eosinphils 0.1 thou/uL (0.0-0.7); #Lymphocytes 2.7 thou/uL (1.20-3.40); #Monocytes 0.7 thou/uL (0.11-0.59); #Neutrophils 5.5 thou/uL (1.40-6.50); %Basophils 0.3 % (0.0-1.0); %Eosinophils 1.1 % (0.0-10.0); %Lymphocytes 29.9 % (21.0-51.0); %Neutrophils 60.8 % (42.0-75.0); Hemoglobin 12.6 g/dL (12.0-16.0); Mean Corpuscular HGB CONC 31.7 g/dL (32.0-36.0); Mean Corpuscular Hemoglobin 26.8 pg (27.0-31.0); Mean Corpuscular Volume 84.7 fL (78.0-98.0); Mean Platelet Volume 9.9 fL (7.4-10.4); Platelet Count 253 thou/uL (130-400); RBC Distribution Width 14.4 % (11.5-14.5); Red Blood Cell (RBC) Count 4.69 mill/uL (4.20-5.40)
--- NOTE | 2018-03-27 13:54 | RAD ---
PORTABLE CHEST ONE VIEW: 03/27/2018 1:20 p.m. HISTORY: Chest pain. COMPARISON: 08/04/2017 FINDINGS: The heart size is normal. The lungs are well expanded without focal areas of consolidation, pneumoth oraces, or pleural effusions. IMPRESSION: No radiographic evidence of acute cardiopulmonary process. POS: [facility]
[2018-03-27 14:02] LABS: ALT (SGPT) 8 U/L (8-55); AST (SGOT) 11 U/L (5-34); Alkaline Phosphatase 86 U/L (40-150); Anion Gap 14 mmol/L (10-20); BUN (Urea Nitrogen) 10 mg/dL (7.0-18.7); Bilirubin, Total 0.3 mg/dL (0.2-1.2); Calc. Creatinine Clearance 0 mL/min (70-130); Calcium 8.9 mg/dL (7.8-10.44); Carbon Dioxide 20 mmol/L (22-29); Chloride 106 mmol/L (98-107); Estimated GFR-MDRD Greater than 90; Globulin 3.1 g/dL (2.4-3.5); Glucose 93 mg/dL (70-105); Potassium 3.9 mmol/L (3.5-5.1); Protein, Total 7.1 g/dL (6.0-8.3); Sodium 136 mmol/L (136-145)
[2018-03-27 14:08] LABS: CKMB 0.7 ng/mL (0-6.6); Troponin I Less than 0.010 ng/mL (< 0.028)
[2018-03-27 14:20] LABS: Bilirubin Negative (Negative); Blood, Urine Negative (Negative); Clarity CLOUDY (Clear); Glucose, Urine (Dipstick) Negative (Negative); Leukocyte Negative (Negative); Nitrite Negative (Negative); Pregnancy Test - Urine (BHCG) Negative (Negative); Pregu Control Background? CLEAR/WHITE (CLR/WHITE); Pregu Control Bar Appear? YES (CONTROL BAR); Protein, Urine (Dipstick) Negative (Neg-Trace); Specific Gravity 1.008 (1.002-1.036); Specific Gravity, Urine 1.008 (1.002-1.036); Urobilinogen 0.2 mg/dL (0.2-1.0)
[2018-03-27] MEDS ORDERED: Morphine 4 MG/ML VIAL ONE (15:03)
[2018-03-27] MEDS ORDERED: Ondansetron HCl/PF 4 MG/2 ML Vial ONE (15:03)
--- NOTE | 2018-03-27 15:13 | CT ---
CT BRAIN WITHOUT CONTRAST: HISTORY: Right-sided weakness. COMPARISON: 12/21/2017 FINDINGS: No evidence of infarct, hemorrhage, midline shift, or abnormal extraaxial fluid collections is seen. The ventricular size is normal, and the basilar cisterns are patent. The bony calvarium is intact. The visualized paranasal sinuses and mastoid air cells are well aerated. IMPRESSION: No CT evidence of acute intracranial process. POS: [facility]
--- NOTE | 2018-03-27 16:00 | HP ---
DATE OF ADMISSION: 03/27/2018 PRIMARY CARE PHYSICIAN: Juan Carlos Thompson M.D. REASON FOR ADMISSION: Chest pain. HISTORY OF PRESENT ILLNESS: A 42-year-old female who has a previous history of stroke and seizure. She has other medical history including hypertension, diabetes, asthma who came to emergency room wit h complaint of chest pain. She reports that chest pain started this morning, which was left-sided in location, radiation to right upper extremity. She was feeling tingling and numbness sensation in th e right side of the body as well along with the right side of face. Chest pain was on and off and th ere was no specific relation of chest pain with food, respiration or activity. She also reported to me this morning before chest pain started she had syncopal episode for unknown duration. This happen ed when she went outside for a walk with her dog and when she returned to her home, at that time she had syncopal episode, which was not witnessed, but since then, she was having chest discomfort. She denies any shortness of breath. She denies any associated nausea, vomiting, diarrhea or diaphoresis. She denies any palpitations. She denies any headache. In the emergency room, workup was negative. She had generalized tonic clonic seizure, which was witn essed by nurse. She had CT brain was done, which was negative. Her chest x-ray, D-dimer and routine blood test were unremarkable. We are admitting this patient to the hospital for further evaluation. REVIEW OF SYSTEMS: The following complete review of systems was negative, unless otherwise mentioned in the HPI or below: Constitutional: Weight loss or gain, ability to conduct usual activities. Sk in: Rash, itching. Eyes: Double vision, pain. ENT/Mouth: Nose bleeding, neck stiffness, pain, te nderness. Cardiovascular: Palpitations, dyspnea on exertion, orthopnea. Respiratory: Shortness of breath, wheezing, cough, hemoptysis, fever or night sweats. Gastrointestinal: Poor appetite, abdom inal pain, heartburn, nausea, vomiting, constipation, or diarrhea. Genitourinary: Urgency, frequenc y, dysuria, nocturia. Musculoskeletal: Pain, swelling. Neurologic/Psychiatric: Anxiety, depressio n. Allergy/Immunologic: Skin rash, bleeding tendency. Please see my HPI for pertinent positive and negative. All other review of system reviewed and negative except as mentioned in the HPI. PAST MEDICAL HISTORY: History of seizure disorder, diabetes type 2, fibromyalgia, asthma. PAST PSYCHIATRIC HISTORY: Autism, anxiety and depression, attention deficit hyperactivity disorder. PAST SURGICAL HISTORY: Valvular surgery, oophorectomy, appendicectomy, tubal ligation, total abdomin al hysterectomy, left shoulder rotator cuff repair. SOCIAL HISTORY: The patient lives with her sister at home. No history of tobacco, alcohol or illici t drug abuse. She is not . ALLERGIES: ACETAMINOPHEN and OXYCONTIN. FAMILY HISTORY: Father from diabetes related complications. CURRENT HOME MEDICATIONS: Ventolin inhaler 2 puffs q.6 hourly p.r.n., amitriptyline 10 mg p.o. as di rected, Qvar 2 puffs inhalation b.i.d., Fioricet 1 tablet q.12 hourly p.r.n., omeprazole 40 mg p.o. d aily, Trileptal 300 mg p.o. b.i.d., Zanaflex 4 mg q.i.d. p.r.n., Depakote 500 mg p.o. b.i.d., metform in 500 mg p.o. b.i.d. EMERGENCY ROOM COURSE: The patient was given morphine 4 mg and Zofran 4 mg. PHYSICAL EXAMINATION: VITAL SIGNS: Currently, blood pressure 136/87, pulse 87, respiratory rate 18, saturation 100% on james m air, temperature 98.7, weight 104.3 kilograms. GENERAL: Currently, the patient is alert, oriented x3, in no obvious acute distress. No postictal p hase. HEAD: Normocephalic, atraumatic. EYES: Pupils round and reactive to light. Extraocular muscle intact. ENT: Oropharynx within normal limits. Moist mucous membranes. No oral lesion, no pharyngeal erythe ma, no exudate. NECK: Supple. No JVD, no thyromegaly, no carotid bruit, no meningeal signs of irritation. LUNGS: Clear to auscultation without any rhonchi or rales. CARDIAC: S1, S2 regular. No murmur, no gallop, no rub. ABDOMEN: Soft, bowel sounds present, nontender, nondistended. No organomegaly, no mass, no suprapub ic tenderness. BACK: Unremarkable. No CVA tenderness. EXTREMITIES: Upper extremities, passive movement of all joints are normal. Lower extremities, no ed remedios. Good distal pulsation. SKIN: No skin rash. HEMATOLOGICAL: No lymphadenopathy. NEUROLOGIC: The patient is currently alert and oriented x3. Cranial nerves II-XII intact. Motor 5/ 5 in all four limbs. The patient has subjective tingling and numbness sensation on the right side. No cerebellar sign. Plantar bilateral flexor. SIGNIFICANT LABORATORY DATA: EKG showing normal sinus rhythm within normal limits. CT brain based o n my review, no acute intracranial process. Chest x-ray based on my review, no acute cardiopulmonary process. D-dimer 0.41. CBC, WBC 9.0, hemoglobin 12.6, platelet 253,000, glucose 98, CK-MB 0.7. Tr oponin I less than 0.010. BMP, sodium 136, potassium 3.9, chloride 106, carbon dioxide 20, anion gap 14, BUN 10, creatinine 0.69, glucose 93, calcium 8.9. LFT, protein 7.1, albumin 4.0, AST 11, ALT 8. Urinalysis normal. test negative. ASSESSMENT AND PLAN: 1. Chest pain. The patient's chest pain description is atypical. D-dimer is negative, so thromboem bolic disorder is unlikely and probability is also very low to begin with. Cardiac etiology also unl ikely given low risk. Currently, troponin is negative. EKG is normal. We will keep her in telemetr y floor. We will do serial cardiac enzymes and tomorrow we will perform pharmacological stress test as this patient cannot do exercise treadmill. We will check lipid profile for risk stratification to daniel. 2. Recurrent seizure. This patient has seizure disorder. She did not take her seizure medicine toluz elena shearer because she was brought by paramedics to the hospital when she is supposed to take medications. W e will resume her seizure medications, Trileptal 300 mg p.o. b.i.d., Depakote 500 mg p.o. b.i.d. As this patient also has right-sided paraesthesia and she had a syncopal episode, we will obtain MRI bra in to rule out any intracranial process, to rule out any demyelinating lesion in her brain. 3. Syncope. We will check orthostatic vitals. Most likely vasovagal syncope, but unexplained, unwi tnessed. We will obtain echocardiography as a part of workup. We will also check carotid Doppler to rule out any stenosis. 4. Asthma. We will continue Ventolin nebulization q.6 hourly p.r.n. and Qvar versus Dulera 2 puffs inhalation b.i.d., Flonase nasal spray daily. 5. Gastroesophageal reflux disease. Continue Protonix 40 mg p.o. daily. 6. Diabetes type 2. Continue insulin as per sliding scale protocol. Diabetic diet will be given. 7. Obesity. Dietary education given. Healthy lifestyle measures discussed with the patient. 8. Deep venous thrombosis prophylaxis not needed because we are expecting discharge in 24 hours. 9. Gastrointestinal prophylaxis. The patient is already on Protonix therapy. CODE STATUS: The patient is full code. Disposition plan based on above-mentioned investigation result.
[2018-03-27 16:48] LABS: Troponin I Less than 0.010 ng/mL (< 0.028)
[2018-03-27 18:12] VITALS: BMI 42.6
[2018-03-27] MEDS ORDERED: tiZANidine HCl 4 MG TAB PO PRN ×2 (18:22→20:41)
[2018-03-27] MEDS ORDERED: Ondansetron HCl/PF 4 MG/2 ML Vial IVP PRN (18:22)
[2018-03-27] MEDS ORDERED: Chloraseptic Spray 180 ml Bottle PO PRN (18:22)
[2018-03-27] MEDS ORDERED: Zolpidem Tartrate 5 MG TAB PO PRN (18:22)
[2018-03-27] MEDS ORDERED: HumaLOG 300 UNITS/3 ML VIAL SC PRN ×2 (18:22)
[2018-03-27] MEDS ORDERED: Ondansetron ODT 4 MG TAB PO PRN (18:22)
[2018-03-27] MEDS ORDERED: Loratadine 10 MG TAB PO PRN (18:22)
[2018-03-27] MEDS ORDERED: metFORMIN 500 MG TAB PO SCH (18:22)
[2018-03-27] MEDS ORDERED: Dextrose 50% Abboject 50 ML SYRINGE SLOW IVP PRN (18:22)
[2018-03-27] MEDS ORDERED: PROVENTIL INHALER 6.7 G (200 INHALATIONS) INH PRN ×2 (18:22→20:40)
[2018-03-27] MEDS ORDERED: Mag-Al 1200 mg/1200 mg/30 ML UDCUP PO PRN (18:22)
[2018-03-27] MEDS ORDERED: Milk Of Magnesia 30 ML UDCUP PO PRN (18:22)
[2018-03-27] MEDS ORDERED: Artificial Tear Sol 15 ML BOT EA EYE PRN (18:22)
[2018-03-27] MEDS ORDERED: Senokot 8.6 MG TAB PO PRN (18:22)
[2018-03-27] MEDS ORDERED: hydrALAZINE 20 MG/ML VIAL SLOW IVP PRN (18:22)
[2018-03-27] MEDS ORDERED: Diabetic Tussin 200 MG/10 ML UDCUP PO PRN (18:22)
[2018-03-27] MEDS ORDERED: Eucerin (Mineral Oil/Petrolatum,White) 30 gm Jar TOP PRN (18:22)
[2018-03-27] MEDS ORDERED: Lorazepam 2 MG/ML VIAL SLOW IVP PRN (18:22)
[2018-03-27] MEDS ORDERED: Loperamide HCl 2 MG CAP PO PRN (18:22)
[2018-03-27] MEDS ORDERED: Sodium Chloride 0.65% Nasal 44 ML BOT EA NARE PRN (18:22)
[2018-03-27] MEDS ORDERED: Dextrose 5% in Water 1,000 ML IV PRN (18:22)
[2018-03-27] MEDS ORDERED: Mometasone 100 MCG HFA INHALER INH SCH (18:30)
--- NOTE | 2018-03-27 19:13 | ULT ---
ULTRASOUND DOPPLER DUPLEX CAROTID: 03/27/18 HISTORY: 42-year-old female status post syncope. TECHNIQUE: Wood scale, color flow, and spectral analysis of the major arteries of the neck. FINDINGS: Little or no plaque is visualized. Highest peak systolic velocities in the internal carotid arteries are bilaterally 90 cm/s. ICA/CCA ra tios are bilaterally 0.8. Vertebral artery flow is antegrade bilaterally. IMPRESSION: Negative. POS: [facility]
[2018-03-27 19:56] LABS: Troponin I Less than 0.010 ng/mL (< 0.028)
[2018-03-27] MEDS ORDERED: CeleCOXIB 100 MG CAP PO PRN (20:37)
[2018-03-27] MEDS ORDERED: Amitriptyline HCl 10 MG TAB PO PRN ×3 (20:43→20:44)
[2018-03-27] MEDS ORDERED: Albuterol Sulfate 2.5 mg/3 ml Neb NEB PRN (20:51)
[2018-03-27] MEDS ORDERED: Divalproex Sodium DR 500 MG TAB PO SCH (21:00)
[2018-03-27] MEDS ORDERED: OXcarbazepine 300 MG TAB PO SCH (21:00)
[2018-03-27] MEDS ORDERED: OXcarbazepine 150 MG TAB PO SCH (21:00)
[2018-03-27] MEDS: hydrOXYzine Pamoate 25 mg Capsule PO SCH (22:14)
[2018-03-27] MEDS: levETIRAcetam 500 MG TAB PO SCH (22:15)
[2018-03-27] MEDS: Amitriptyline HCl 10 MG TAB PO SCH (22:16)
[2018-03-27] MEDS: OXcarbazepine 300 MG TAB PO SCH (23:08)
[2018-03-28] MEDS ORDERED: Morphine 2 MG/ML SYRINGE SLOW IVP PRN
[2018-03-28] MEDS: Nitroglycerin 0.4 MG TAB (25 Tab Bottle) SL PRN ×3 (00:07→11:53)
[2018-03-28 05:14] LABS: Cardiac Risk 4.3 (Less than 4.5)
[2018-03-28] MEDS: Mometasone 100 MCG HFA INHALER INH SCH ×2 (07:22→19:55)
[2018-03-28] MEDS: OXcarbazepine 300 MG TAB PO SCH ×2 (08:08→20:03)
[2018-03-28] MEDS: FLUoxetine HCl 20 MG CAP PO SCH (08:09)
[2018-03-28] MEDS: levETIRAcetam 500 MG TAB PO SCH ×2 (08:09→20:02)
[2018-03-28] MEDS: Docusate 100 MG CAP PO SCH (08:09)
[2018-03-28] MEDS: Spironolactone 25 MG TAB PO SCH (08:09)
[2018-03-28] MEDS: Aspirin 325 MG TAB PO SCH (08:09)
[2018-03-28] MEDS: Fluticasone Propionate Nasal Spray 16 gm Bottle NASAL SCH (08:10)
[2018-03-28] MEDS: metFORMIN 500 MG TAB PO SCH ×2 (08:10→15:58)
[2018-03-28] MEDS: hydrOXYzine Pamoate 25 mg Capsule PO SCH ×3 (08:11→20:03)
[2018-03-28] MEDS ORDERED: Fluticasone Propionate Nasal Spray 16 gm Bottle NASAL SCH (09:00)
[2018-03-28] MEDS ORDERED: Regadenoson 0.4 MG/5 ML SYRINGE ONE (10:22)
--- NOTE | 2018-03-28 11:14 | PDOC.PN ---
- Subjective Encounter Start Date: 03/28/18 Encounter Start Time: 10:00 -: old records requested/rev - Objective Resuscitation Status: Resuscitation Status FULL:Full Resuscitation MAR Reviewed: Yes Vital Signs & Weight: Vital Signs (12 hours) Temp Pulse Resp BP Pulse Ox 03/28/18 08:00 97.9 F 70 18 91/49 L 100 03/28/18 07:22 92 16 97 03/28/18 04:00 98.2 F 77 18 112/53 L 97 03/28/18 00:00 97.8 F 81 18 101/59 L 100 Weight Weight 211 lb 1 oz I&O: 03/27/18 03/28/18 03/29/18 06:59 06:59 06:59 Intake Total 280 Output Total 250 Balance 30 Result Diagrams: 03/27/18 13:21 03/27/18 13:21 Additional Labs: Accuchecks 03/28/18 03/28/18 03/27/18 06:29 01:27 13:34 POC Glucose 88 94 98 Radiology Reviewed by me: Yes (carotid us normal) EKG Reviewed by me: Yes (nsr) Phys Exam - Physical Examination Constitutional: NAD HEENT: PERRLA, moist MMs, sclera anicteric Neck: no JVD, supple Respiratory: no wheezing, no rales, no rhonchi Cardiovascular: RRR, no significant murmur, no rub Gastrointestinal: soft, non-tender, no distention, positive bowel sounds Musculoskeletal: no edema, pulses present Neurological: non-focal, normal sensation, moves all 4 limbs Psychiatric: normal affect, A&O x 3 Skin: no rash, normal turgor Dx/Plan (1) Chest pain Code(s): R07.9 - CHEST PAIN, UNSPECIFIED Status: Acute (2) Seizure Code(s): R56.9 - UNSPECIFIED CONVULSIONS Status: Acute (3) Syncope Code(s): R55 - SYNCOPE AND COLLAPSE Status: Acute (4) Anemia, normocytic normochromic Code(s): D64.9 - ANEMIA, UNSPECIFIED Status: Chronic (5) Asthma Code(s): J45.909 - UNSPECIFIED ASTHMA, UNCOMPLICATED Status: Chronic (6) Autism Code(s): F84.0 - AUTISTIC DISORDER Status: Chronic (7) DM type 2 (diabetes mellitus, type 2) Status: Chronic Qualifiers: (8) GERD (gastroesophageal reflux disease) Code(s): K21.9 - GASTRO-ESOPHAGEAL REFLUX DISEASE WITHOUT ESOPHAGITIS Status: Chronic (9) Mild mental retardation Code(s): F70 - MILD INTELLECTUAL DISABILITIES Status: Chronic (10) Morbid obesity with BMI of 40.0-44.9, adult Code(s): E66.01 - MORBID (SEVERE) OBESITY DUE TO EXCESS CALORIES; Z68.41 - BODY MASS INDEX (BMI) 40.0-44.9, ADULT Status: Chronic (11) Seizure disorder Code(s): G40.909 - EPILEPSY, UNSP, NOT INTRACTABLE, WITHOUT STATUS EPILEPTICUS Status: Chronic - Plan cont current plan of care * MRI pending * today stress test * continue home medication * medication reviewed as below * symptomatic treatment * discharge pending above. Review of Systems - Review of Systems ENT: negative: Ear Pain, Ear Discharge, Nose Pain, Nose Discharge, Nose Congestion, Mouth Pain, Mouth Swelling, Throat Pain, Throat Swelling, Other Respiratory: negative: Cough, Dry, Shortness of Breath, Hemoptysis, SOB with Excertion, Pleuritic Pain, Sputum, Wheezing Cardiovascular: negative: chest pain, palpitations, orthopnea, paroxysmal nocturnal dyspnea, edema, light headedness, other Gastrointestinal: negative: Nausea, Vomiting, Abdominal Pain, Diarrhea, Constipation, Melena, Hematochezia, Other Genitourinary: negative: Dysuria, Frequency, Incontinence, Hematuria, Retention , Other Musculoskeletal: negative: Neck Pain, Shoulder Pain, Arm Pain, Back Pain, Hand Pain, Leg Pain, Foot Pain, Other - Medications/Allergies Allergies/Adverse Reactions: Allergies Allergy/AdvReac Type Severity Reaction Status Date / Time nitrofurantoin Allergy Verified 03/27/18 19:33 [From Macrobid] strawberry Allergy Verified 06/07/17 19:51 acetaminophen [From Percocet] AdvReac Verified 06/07/17 19:51 oxycodone HCl [From Percocet] AdvReac Emesis Verified 03/27/18 19:33 Medications: Current Medications Al Hydroxide/Mg Hydroxide (Maalox) 30 ml PO Q6H PRN PRN Reason: Heartburn or Indigestion Albuterol Sulfate (Proventil Hfa) 2 puff INH Q4H PRN PRN Reason: Dyspnea/Wheezing/SOB Amitriptyline HCl (Elavil) 10 mg PO HS [facility] Last Admin: 03/27/18 22:16 Dose: 10 mg Artificial Tears (Tears Renewed 15ml Bottle) 0 drop EA EYE PRN PRN PRN Reason: Dry Eyes Aspirin (Aspirin) 325 mg PO DAILY [facility] Last Admin: 03/28/18 08:09 Dose: 325 mg Celecoxib (Celebrex) 200 mg PO BID PRN PRN Reason: ARTHRITIS PAIN Dextrose/Water (Dextrose 50%) 25 gm SLOW IVP PRN PRN PRN Reason: Hypoglycemia Docusate Sodium (Colace) 100 mg PO DAILY [facility] Last Admin: 03/28/18 08:09 Dose: 100 mg Fluoxetine HCl (Prozac) 20 mg PO DAILY [facility] Last Admin: 03/28/18 08:09 Dose: 20 mg Fluticasone Propionate (Flonase Nasal [place]) 0 gm NASAL DAILY [facility] Last Admin: 03/28/18 08:10 Dose: Not Given Glucagon (Glucagon) 1 mg IM PRN PRN PRN Reason: Hypoglycemia Guaifenesin (Robitussin Sf) 200 mg PO Q4H PRN PRN Reason: Cough Hydralazine HCl (Apresoline) 10 mg SLOW IVP Q4H PRN PRN Reason: Systolic BP > 180 Hydroxyzine Pamoate (Vistaril) 25 mg PO TID [facility] Last Admin: 03/28/18 08:11 Dose: 25 mg Dextrose/Water (D5w) 1,000 mls @ 0 mls/hr IV .Q0M PRN PRN Reason: Hypoglycemia Insulin Human Lispro (Humalog) 0 units SC .MODERATE SLIDING SC PRN PRN Reason: Moderate Correctional Scale Insulin Human Lispro (Humalog) 0 units SC .BEDTIME SLIDING SC PRN PRN Reason: Bedtime Correctional Scale Levetiracetam (Keppra) 750 mg PO BID [facility] Last Admin: 03/28/18 08:09 Dose: 750 mg Loperamide HCl (Imodium) 2 mg PO PRN PRN PRN Reason: Diarrhea/Loose Stools Loratadine (Claritin) 10 mg PO DAILYPRN PRN PRN Reason: Sinus Symptoms Lorazepam (Ativan) 1 mg SLOW IVP Q4H PRN PRN Reason: Anxiety/Agitation Magnesium Hydroxide (Milk Of Magnesium) 30 ml PO DAILYPRN PRN PRN Reason: Constipation Metformin HCl (Glucophage) 1,000 mg PO BID-[facility] Last Admin: 03/28/18 08:10 Dose: 1,000 mg Mineral Oil/White Petrolatum (Eucerin Cream) 0 gm TOP BIDPRN PRN PRN Reason: Dry Skin Mometasone Furoate (Asmanex Hfa 100 Mcg) 1 puff INH BID-RT [facility] Last Admin: 03/28/18 07:22 Dose: 1 puff Morphine Sulfate (Morphine) 2 mg SLOW IVP ONE PRN PRN Reason: .CHEST PAIN Stop: 03/29/18 00:01 Last Admin: 03/28/18 00:47 Dose: 2 mg Nitroglycerin (Nitrostat) 0.4 mg SL Q5MIN PRN PRN Reason: Chest Pain Ondansetron HCl (Zofran Odt) 4 mg PO Q6H PRN PRN Reason: Nausea/Vomiting Ondansetron HCl (Zofran) 4 mg IVP Q6H PRN PRN Reason: Nausea/Vomiting Last Admin: 03/27/18 22:14 Dose: 4 mg Oxcarbazepine (Trileptal) 600 mg PO BID [facility] Last Admin: 03/28/18 08:08 Dose: 600 mg Pantoprazole Sodium (Protonix) 40 mg PO BID [facility] Last Admin: 03/28/18 08:10 Dose: 40 mg Phenol (Chloraseptic [place] 180 Ml Bot) 0 ml PO PRN PRN PRN Reason: Sore Throat Senna (Senokot) 2 tab PO HSPRN PRN PRN Reason: Constipation Sodium Chloride (Katie Nasal [place] 0.65%) 0 ml EA NARE QIDPRN PRN PRN Reason: Nasal Congestion Spironolactone (Aldactone) 25 mg PO QAM-[facility] Last Admin: 03/28/18 08:09 Dose: 25 mg Tizanidine HCl (Zanaflex) 4 mg PO QID PRN PRN Reason: MUSCLE SPASM Zolpidem Tartrate (Ambien) 5 mg PO HSPRN PRN PRN Reason: Insomnia
--- NOTE | 2018-03-28 12:00 | MRI ---
MRI BRAIN WITH AND WITHOUT IV CONTRAST: Date: 03/28/18 HISTORY: Syncope and seizure. FINDINGS: No restricted diffusion is seen. No evidence of infarct, hemorrhage, mass, midline shift, or abnormal extra-axial fluid collections are seen. The ventricular size is normal and the basilar cisterns are patent. No abnormal postcontrast enhancement is seen. No tonsillar hernia is seen. The visualized par anasal sinuses and mastoid air cells are well aerated. IMPRESSION: No evidence of acute intracranial process or mass. POS: [facility]
[2018-03-28] MEDS ORDERED: Ketorolac Tromethamine 30 MG/ML VIAL IVP PRN (17:42)
[2018-03-28] MEDS: Amitriptyline HCl 10 MG TAB PO SCH (20:02)
[2018-03-29] MEDS: Mometasone 100 MCG HFA INHALER INH SCH (06:42)
[2018-03-29] MEDS: OXcarbazepine 300 MG TAB PO SCH (07:12)
[2018-03-29] MEDS: levETIRAcetam 500 MG TAB PO SCH (07:12)
--- NOTE | 2018-03-29 09:47 | PDOC.PN ---
- Subjective Encounter Start Date: 03/29/18 Encounter Start Time: 06:50 Patient seen and examined. No new complaints. No overnight events pt had seizure when he had stress test - Objective Resuscitation Status: Resuscitation Status FULL:Full Resuscitation MAR Reviewed: Yes Vital Signs & Weight: Vital Signs (12 hours) Temp Pulse Pulse Resp BP BP Pulse Ox 03/29/18 08:34 107 H 121/67 03/29/18 07:50 97.9 F 70 20 98/51 L 97 03/29/18 06:42 86 16 98 03/29/18 03:51 97.8 F 74 16 104/57 L 97 03/29/18 00:00 98.0 F 84 18 102/53 L 96 Weight Weight 211 lb 1 oz I&O: 03/28/18 03/29/18 03/30/18 06:59 06:59 06:59 Intake Total 280 720 Output Total 250 Balance 30 720 Result Diagrams: 03/27/18 13:21 03/27/18 13:21 Additional Labs: Accuchecks 03/29/18 03/28/18 03/28/18 05:56 21:35 17:10 POC Glucose 71 112 H 93 03/28/18 11:48 POC Glucose 110 Radiology Reviewed by me: Yes EKG Reviewed by me: Yes (nsr) Phys Exam - Physical Examination Constitutional: NAD HEENT: PERRLA, moist MMs, sclera anicteric Neck: no JVD, supple Respiratory: no wheezing, no rales, no rhonchi Cardiovascular: RRR, no significant murmur, no rub Gastrointestinal: soft, non-tender, no distention, positive bowel sounds Musculoskeletal: no edema, pulses present Neurological: non-focal, normal sensation, moves all 4 limbs Lymphatic: no nodes Psychiatric: normal affect, A&O x 3 Skin: no rash, normal turgor Dx/Plan (1) Chest pain Code(s): R07.9 - CHEST PAIN, UNSPECIFIED Status: Acute (2) Seizure Code(s): R56.9 - UNSPECIFIED CONVULSIONS Status: Acute (3) Syncope Code(s): R55 - SYNCOPE AND COLLAPSE Status: Acute (4) Anemia, normocytic normochromic Code(s): D64.9 - ANEMIA, UNSPECIFIED Status: Chronic (5) Asthma Code(s): J45.909 - UNSPECIFIED ASTHMA, UNCOMPLICATED Status: Chronic (6) Autism Code(s): F84.0 - AUTISTIC DISORDER Status: Chronic (7) DM type 2 (diabetes mellitus, type 2) Status: Chronic Qualifiers: (8) GERD (gastroesophageal reflux disease) Code(s): K21.9 - GASTRO-ESOPHAGEAL REFLUX DISEASE WITHOUT ESOPHAGITIS Status: Chronic (9) Mild mental retardation Code(s): F70 - MILD INTELLECTUAL DISABILITIES Status: Chronic (10) Morbid obesity with BMI of 40.0-44.9, adult Code(s): E66.01 - MORBID (SEVERE) OBESITY DUE TO EXCESS CALORIES; Z68.41 - Status: Chronic (11) Seizure disorder Code(s): G40.909 - EPILEPSY, UNSP, NOT INTRACTABLE, WITHOUT STATUS EPILEPTICUS Status: Chronic - Plan cont current plan of care * medication reviewed as below * symptomatic treatment * will consider discharge if stress test negative * she will need neurology follow up for seizure control. Review of Systems - Review of Systems Constitutional: negative: fever, chills, sweats, weakness, malaise, other Eyes: negative: Pain, Vision Change, Conjunctivae Inflammation, Eyelid Inflammation, Redness, Other ENT: negative: Ear Pain, Ear Discharge, Nose Pain, Nose Discharge, Nose Congestion, Mouth Pain, Mouth Swelling, Throat Pain, Throat Swelling, Other Respiratory: negative: Cough, Dry, Shortness of Breath, Hemoptysis, SOB with Excertion, Pleuritic Pain, Sputum, Wheezing Cardiovascular: negative: chest pain, palpitations, orthopnea, paroxysmal nocturnal dyspnea, edema, light headedness, other Gastrointestinal: negative: Nausea, Vomiting, Abdominal Pain, Diarrhea, Constipation, Melena, Hematochezia, Other Genitourinary: negative: Dysuria, Frequency, Incontinence, Hematuria, Retention , Other Musculoskeletal: negative: Neck Pain, Shoulder Pain, Arm Pain, Back Pain, Hand Pain, Leg Pain, Foot Pain, Other Skin: negative: Rash, Lesions, Lon, Bruising, Other Neurological: Seizures. negative: Weakness, Numbness, Incoordination, Change in Speech, Confusion, Other - Medications/Allergies Allergies/Adverse Reactions: Allergies Allergy/AdvReac Type Severity Reaction Status Date / Time nitrofurantoin Allergy Verified 03/27/18 19:33 [From Macrobid] strawberry Allergy Verified 06/07/17 19:51 acetaminophen [From Percocet] AdvReac Verified 06/07/17 19:51 oxycodone HCl [From Percocet] AdvReac Emesis Verified 03/27/18 19:33 Medications: Current Medications Al Hydroxide/Mg Hydroxide (Maalox) 30 ml PO Q6H PRN PRN Reason: Heartburn or Indigestion Albuterol Sulfate (Proventil Hfa) 2 puff INH Q4H PRN PRN Reason: Dyspnea/Wheezing/SOB Amitriptyline HCl (Elavil) 10 mg PO HS [facility] Last Admin: 03/28/18 20:02 Dose: 10 mg Artificial Tears (Tears Renewed 15ml Bottle) 0 drop EA EYE PRN PRN PRN Reason: Dry Eyes Aspirin (Aspirin) 325 mg PO DAILY [facility] Last Admin: 03/28/18 08:09 Dose: 325 mg Celecoxib (Celebrex) 200 mg PO BID PRN PRN Reason: ARTHRITIS PAIN Dextrose/Water (Dextrose 50%) 25 gm SLOW IVP PRN PRN PRN Reason: Hypoglycemia Docusate Sodium (Colace) 100 mg PO DAILY [facility] Last Admin: 03/28/18 08:09 Dose: 100 mg Fluoxetine HCl (Prozac) 20 mg PO DAILY [facility] Last Admin: 03/28/18 08:09 Dose: 20 mg Fluticasone Propionate (Flonase Nasal [place]) 0 gm NASAL DAILY [facility] Last Admin: 03/28/18 08:10 Dose: Not Given Glucagon (Glucagon) 1 mg IM PRN PRN PRN Reason: Hypoglycemia Guaifenesin (Robitussin Sf) 200 mg PO Q4H PRN PRN Reason: Cough Hydralazine HCl (Apresoline) 10 mg SLOW IVP Q4H PRN PRN Reason: Systolic BP > 180 Hydroxyzine Pamoate (Vistaril) 25 mg PO TID [facility] Last Admin: 03/28/18 20:03 Dose: 25 mg Dextrose/Water (D5w) 1,000 mls @ 0 mls/hr IV .Q0M PRN PRN Reason: Hypoglycemia Insulin Human Lispro (Humalog) 0 units SC .MODERATE SLIDING SC PRN PRN Reason: Moderate Correctional Scale Insulin Human Lispro (Humalog) 0 units SC .BEDTIME SLIDING SC PRN PRN Reason: Bedtime Correctional Scale Ketorolac Tromethamine (Toradol) 15 mg IVP Q6H PRN PRN Reason: Pain Stop: 04/02/18 17:43 Last Admin: 03/28/18 20:02 Dose: 15 mg Levetiracetam (Keppra) 750 mg PO BID [facility] Last Admin: 03/29/18 07:12 Dose: 750 mg Loperamide HCl (Imodium) 2 mg PO PRN PRN PRN Reason: Diarrhea/Loose Stools Loratadine (Claritin) 10 mg PO DAILYPRN PRN PRN Reason: Sinus Symptoms Lorazepam (Ativan) 1 mg SLOW IVP Q4H PRN PRN Reason: Anxiety/Agitation Magnesium Hydroxide (Milk Of Magnesium) 30 ml PO DAILYPRN PRN PRN Reason: Constipation Metformin HCl (Glucophage) 1,000 mg PO BID-[facility] Last Admin: 03/28/18 15:58 Dose: 1,000 mg Mineral Oil/White Petrolatum (Eucerin Cream) 0 gm TOP BIDPRN PRN PRN Reason: Dry Skin Mometasone Furoate (Asmanex Hfa 100 Mcg) 1 puff INH BID-RT [facility] Last Admin: 03/29/18 06:42 Dose: 1 puff Nitroglycerin (Nitrostat) 0.4 mg SL Q5MIN PRN PRN Reason: Chest Pain Last Admin: 03/28/18 11:53 Dose: 0.4 mg Ondansetron HCl (Zofran Odt) 4 mg PO Q6H PRN PRN Reason: Nausea/Vomiting Ondansetron HCl (Zofran) 4 mg IVP Q6H PRN PRN Reason: Nausea/Vomiting Last Admin: 03/27/18 22:14 Dose: 4 mg Oxcarbazepine (Trileptal) 600 mg PO BID [facility] Last Admin: 03/29/18 07:12 Dose: 600 mg Pantoprazole Sodium (Protonix) 40 mg PO BID [facility] Last Admin: 03/28/18 20:03 Dose: 40 mg Phenol (Chloraseptic [place] 180 Ml Bot) 0 ml PO PRN PRN PRN Reason: Sore Throat Senna (Senokot) 2 tab PO HSPRN PRN PRN Reason: Constipation Sodium Chloride (Treasure Nasal [place] 0.65%) 0 ml EA NARE QIDPRN PRN PRN Reason: Nasal Congestion Spironolactone (Aldactone) 25 mg PO QAM-[facility] Last Admin: 03/28/18 08:09 Dose: 25 mg Tizanidine HCl (Zanaflex) 4 mg PO QID PRN PRN Reason: MUSCLE SPASM Zolpidem Tartrate (Ambien) 5 mg PO HSPRN PRN PRN Reason: Insomnia
--- NOTE | 2018-03-29 10:17 | NM ---
RADIONUCLIDE STRESS RESS MYOCARDIAL PERFUSION SCAN WITH CT ATTENUATION CORRECTION AND SPECT IMAGING LEFT VENTRICULAR WALL MOTION EVALUATION AND EJECTION FRACTION: History: Chest pain. FINDINGS: Lexiscan protocol. Heterogeneous uptake of radiotracer throughout the left ventricular myocardium. Br east attenuation at the anterior wall. No focal perfusion defect or reversibility. QGS analysis of ga baldomero SPECT images shows no focal wall motion abnormalities. Ejection fraction is calculated at greater than 88%. IMPRESSION: Normal myocardial perfusion scan. Normal LVEF. POS: [facility]
[2018-03-29] MEDS: Aspirin 325 MG TAB PO SCH (10:28)
[2018-03-29] MEDS: metFORMIN 500 MG TAB PO SCH (10:28)
[2018-03-29] MEDS: Spironolactone 25 MG TAB PO SCH (10:28)
[2018-03-29] MEDS: Docusate 100 MG CAP PO SCH (10:28)
[2018-03-29] MEDS: hydrOXYzine Pamoate 25 mg Capsule PO SCH ×2 (10:29→16:17)
[2018-03-29] MEDS: FLUoxetine HCl 20 MG CAP PO SCH (10:29)
--- NOTE | 2018-03-29 11:23 | DIS ---
DATE OF ADMISSION: 03/27/2018 DATE OF DISCHARGE: 03/29/2018 PRIMARY CARE PHYSICIAN: [facility] call admission. DISCHARGE DISPOSITION: Home. PRIMARY DISCHARGE DIAGNOSES: Chest pain, ruled out acute coronary syndrome; syncope, unexplained, un witnessed and recurrent seizure. SECONDARY DISCHARGE DIAGNOSES: Seizure disorder; normocytic normochromic anemia; morbid obesity with BMI 42; asthma, mild, intermittent; autism; diabetes type 2; mild mental retardation and gastroesoph ageal reflux disease. PRIMARY PROCEDURE/OPERATION: None. RADIOLOGICAL INVESTIGATION: Chest x-ray normal. CT brain negative. Carotid Doppler normal. MRI br ain normal. Echocardiography, normal EF. Stress test negative. SIGNIFICANT LABORATORY DATA: WBC 9.0, hemoglobin 12.6, platelet 253,000. D-dimer 0.41, LDL 83. Car diac enzymes negative x3. BMP, LFT normal. Urinalysis normal. DISCHARGE MEDICATIONS: Albuterol sulfate 2 puffs q.4 hourly nebulization p.r.n., amitriptyline 10 mg p.o. as directed, Qvar 2 puffs inhalation b.i.d., celecoxib 200 mg p.o. b.i.d., Flonase nasal spray daily, metformin 1000 mg p.o. b.i.d., omeprazole 40 mg p.o. b.i.d., Trileptal 600 mg p.o. b.i.d., Matias aflex 4 mg q.i.d. p.r.n. CONTRAINDICATIONS: None. CODE STATUS: Full code. INPATIENT CONSULTANTS: None. ALLERGIES: MACROBID, STRAWBERRY, TYLENOL, OXYCODONE. DISCHARGE PLAN: Post hospital, the patient is instructed to follow up with Neurology within a week f or her seizure medication. HOSPITAL COURSE: A 42-year-old female with above-mentioned medical problem who was admitted by me. Please see my HPI for further detail. She was having chest pain, which was pretty much right-sided a nd she was also experiencing right-sided upper and lower extremity paraesthesia. Her presentation wa s completely atypical. She also reported syncope, which was unwitnessed and unexplained. While in h ospital, we kept her in the hospital and we did necessary workup. Initial chest x-ray was normal. C T brain was negative. MRI brain came back normal. We did carotid Doppler that was also normal. Her stress test came back negative. Echocardiography was also unremarkable. The patient had 2 times se izure while in the hospital, one in the emergency room and one when she had stress test done. It see ms like her seizure is not well controlled. We tried to call Neurology body shop floorperson, but unfortunately in our hospital today we do not have any body shop floorperson Neurology. We advised this patient to follow up with Neurology for her seizure medication. The patient is advised to avoid any heavy machinery activity. The patient is stable otherwise medically and ready for discharge. The patient is seen and examined at bedside today. Please see my progress note from today for furthe r detail.
[2018-03-29] MEDS: Fluticasone Propionate Nasal Spray 16 gm Bottle NASAL SCH (11:25)
[2018-03-29 12:48] VITALS: BP 93/55; TEMP 98.3
--- NOTE | 2018-03-29 13:37 | EKG ---
Test Reason : STAT Blood Pressure : / mmHG Vent. Rate : 076 BPM Atrial Rate : 076 BPM P-R Int : 142 ms QRS Dur : 072 ms QT Int : 400 ms P-R-T Axes : 036 138 136 degrees QTc Int : 450 ms Normal sinus rhythm Left posterior fascicular block Cannot rule out Inferior infarct , age undetermined Abnormal ECG When compared with ECG of 27-MAR-2018 12:59, (Unconfirmed) Left posterior fascicular block is now Present Confirmed by AMBIKA JAMES, SBacilio ([id number]) on 03/29/2018 1:36:49 PM Referred By: JORGE Confirmed By:DR. Eleuterio APPLE MD
== END 2018-03-29 15:38 | disposition home or self-care (01) | DRG 101 ==
LOC: ERS 12:52 → 2SE 18:01
PROVIDERS: ADMIT Internal Medicine; ATTEND Internal Medicine
DX: G40.409 Other generalized epilepsy and epileptic syndromes, not intractable, without status epilepticus (principal); F84.0 Autistic disorder; Z68.41 Body mass index [BMI] 40.0-44.9, adult; R07.89 Other chest pain; R55 Syncope and collapse; D64.9 Anemia, unspecified; J45.909 Unspecified asthma, uncomplicated; K21.9 Gastro-esophageal reflux disease without esophagitis; F70 Mild intellectual disabilities; E66.01 Morbid (severe) obesity due to excess calories; F41.9 Anxiety disorder, unspecified; F32.9 Major depressive disorder, single episode, unspecified; E11.9 Type 2 diabetes mellitus without complications; Z86.73 Personal history of transient ischemic attack (TIA), and cerebral infarction without residual deficits; I10 Essential (primary) hypertension; F90.9 Attention-deficit hyperactivity disorder, unspecified type; R20.2 Paresthesia of skin
CPT/HCPCS: 36415; 36416; 70450; 70553; 71045; 78452; 80053; 80061; 81003; 81025; 82553; 83880; 84484; 85025; 85379; 93005; 93010; 93017; 93306; 93880; 96374; 96375; A9500; J1885; J2270; J2405; J2785; Q0177

== ENCOUNTER 2018-04-14 07:21 | Outpatient (CLI) | payer MEDICARE, OTHER ==
--- NOTE | 2018-04-14 13:58 | NM ---
GASTRIC EMPTYING EXAM: Indication: Gastroesophageal reflux disease without esophagitis. Radiopharmaceutical: 2 mCi Technetium 99M Sulfur-Colloid, oral ingestion. FINDINGS: Gastric emptying half-time is approximately 30 minutes. 90% gastric emptying occurred at 185 minutes and complete gastric emptying occurred at 245 minutes. IMPRESSION: Gastric emptying half-time of 30 minutes. POS: [facility]
== END 2018-04-14 07:22 | disposition home or self-care (01) ==
LOC: NM 07:21
PROVIDERS: ATTEND Internal Medicine Gastroenterology
DX: K21.9 Gastro-esophageal reflux disease without esophagitis (principal); K22.70 Barrett's esophagus without dysplasia
CPT/HCPCS: 78264; A9541

== ENCOUNTER 2018-08-22 18:41 | Observation (INO) | payer MEDICARE, OTHER ==
[~2018-08-22 18:41] MED LIST: ISOVUE-370 76%-LOCM 1 ML ONE
[2018-08-22 19:16] LABS: #Eosinphils 0.1 thou/uL (0.0-0.7); #Lymphocytes 3.3 thou/uL (1.20-3.40); #Monocytes 0.7 thou/uL (0.11-0.59); %Basophils 0.3 % (0.0-1.0); %Eosinophils 1.1 % (0.0-10.0); %Monocytes 6.1 % (0.0-10.0); %Neutrophils 65.5 % (42.0-75.0); Hemoglobin 13.4 g/dL (12.0-16.0); Mean Corpuscular HGB CONC 32.5 g/dL (32.0-36.0); Mean Corpuscular Hemoglobin 28.3 pg (27.0-31.0); Mean Corpuscular Volume 87.1 fL (78.0-98.0); Mean Platelet Volume 9.4 fL (7.4-10.4); Platelet Count 237 thou/uL (130-400); RBC Distribution Width 13.6 % (11.5-14.5); Red Blood Cell (RBC) Count 4.73 mill/uL (4.20-5.40); White Blood Cell (WBC) Count 12.2 thou/uL (4.8-10.8)
[2018-08-22] MEDS ORDERED: Lorazepam 2 MG/ML VIAL ONE (19:21)
--- NOTE | 2018-08-22 19:34 | RAD ---
CHEST ONE VIEW: History: Chest pain Comparison: 03-27-18 FINDINGS: Lungs are hypoinflated with vascular crowding. There is also a superimposed pulmonary venous congesti on. No pneumothorax or effusion. IMPRESSION: Mild pulmonary venous congestion. POS: [facility]
[2018-08-22 19:37] LABS: ALT (SGPT) 12 U/L (8-55); AST (SGOT) 10 U/L (5-34); Albumin 4.3 g/dL (3.5-5.0); Alkaline Phosphatase 85 U/L (40-150); Anion Gap 15 mmol/L (10-20); BUN (Urea Nitrogen) 11 mg/dL (7.0-18.7); Bilirubin, Total Less than 0.2 mg/dL (0.2-1.2); Calc. Creatinine Clearance 0 mL/min (70-130); Calcium 9.4 mg/dL (7.8-10.44); Carbon Dioxide 22 mmol/L (22-29); Chloride 107 mmol/L (98-107); Estimated GFR-MDRD 88; Globulin 3.5 g/dL (2.4-3.5); Glucose 90 mg/dL (70-105); Potassium 3.6 mmol/L (3.5-5.1); Protein, Total 7.8 g/dL (6.0-8.3); Sodium 140 mmol/L (136-145)
[2018-08-22 20:19] LABS: Bilirubin Negative (Negative); Blood, Urine Negative (Negative); Clarity CLEAR (Clear); Glucose, Urine (Dipstick) Negative (Negative); Leukocyte Negative (Negative); Nitrite Negative (Negative); Protein, Urine (Dipstick) Negative (Neg-Trace); Specific Gravity, Urine 1.042 (1.002-1.036); Urobilinogen 0.2 mg/dL (0.2-1.0)
--- NOTE | 2018-08-22 20:33 | CT ---
CT ANGIOGRAM CHEST WITH CONTRAST CT ANGIOGRAM ABDOMEN WITH CONTRAST: History: Chest pain Comparison: Chest radiograph, same day. FINDINGS: CT angiogram of the chest and abdomen performed after the intravenous administration of contrast. 3D rendering is provided. Pulmonary trunk is dilated measuring 34 mm, acute pulmonary ventral hypertension. The aortic contour is non-aneurysmal. No intimal fat. Moderate sized sliding hiatal hernia. There is mild pulmonary venous congestion. No pneumothorax. No effusion. Heart size is mildly enlarged. No pericardial effusion. There is an 8 mm nodule in the inferior right breast. The liver, spleen, pancreas unremarkable. No hy dronephrosis. No thoracic or lumbar spine compression fracture. Sternum and manubrium are intact. Clavicles are int act. No acute displaced rib fracture. There is contrast within the large bowel. There is a small bowel containing ventral periumbilical her anna without proximal obstruction. No retroperitoneal adenopathy. IMPRESSION: 1. No aortic dissection or aneurysmal dilatation. 2. Small bowel containing ventral periumbilical hernia without evidence of obstruction. 3. 8 mm mass inferior right breast. Nonemergent mammography correlation recommended. 4. Mild pulmonary venous congestion. 5. Moderate sliding hiatal hernia. POS: [facility]
[2018-08-22] MEDS ORDERED: Acetaminophen 500 MG TAB ONE (20:56)
[2018-08-22] MEDS ORDERED: Senokot S 8.6-50 MG TAB PO PRN (22:57)
[2018-08-22] MEDS ORDERED: Acetaminophen 325 MG TAB PO PRN (22:57)
[2018-08-22] MEDS ORDERED: Ondansetron ODT 4 MG TAB PO PRN (22:57)
[2018-08-22] MEDS ORDERED: Ondansetron PF 4 MG/2 ML Vial IVP PRN (22:57)
[2018-08-22] MEDS ORDERED: Dextrose 50% Abboject 50 ML SYRINGE SLOW IVP PRN (23:22)
[2018-08-22] MEDS ORDERED: HumaLOG 300 UNITS/3 ML VIAL SC PRN ×2 (23:22)
[2018-08-22] MEDS ORDERED: Dextrose 5% in Water 1,000 ML IV PRN (23:22)
[2018-08-22] MEDS ORDERED: Lorazepam 2 MG/ML VIAL SLOW IVP PRN (23:27)
[2018-08-22 23:41] VITALS: BMI 43.8
[2018-08-22 23:58] LABS: Amphetamine Not Detected (NotDetected); Barbiturates Screen Not Detected (NotDetected); Benzodiazepine Screen Not Detected (NotDetected); Cocaine Metabolite Screen Not Detected (NotDetected); Medtox Control Line Valid? VALID (VALID); Medtox Reader # READER 1; Methadone Not Detected (NotDetected); Methamphetamine Not Detected (NotDetected); Opiate Screen Not Detected (NotDetected); Oxycodone Screen Not Detected (NotDetected); Phencyclidine (PCP) Not Detected (NotDetected); THC/Cannabinoid Screen Not Detected (NotDetected); Tricyclic Screen Not Detected (NotDetected)
[2018-08-23] MEDS: Ketorolac Tromethamine 30 MG/ML VIAL IVP PRN ×2 (00:21→08:42)
--- NOTE | 2018-08-23 01:41 | HP ---
PRIMARY CARE PHYSICIAN: Dr. Juan Carlos Thompson. CHIEF COMPLAINT: Syncope, likely seizure. HISTORY OF PRESENT ILLNESS: Mrs. Hahn is a pleasant 42-year-old female with past medical history of seizure disorder, diabetes mellitus, asthma, and history of cerebrovascular accidents x3, who had presented to [facility] after a "syncopal episode" that lasted for about 4 to 5 minutes earlier today. Family called EMS and brought the patient into the emergency department for further evaluation. Upon arrival, the patient was alert and oriented. She had no complaints of fever, chills, or any dizziness. She states that she had some chest pain and some abdominal pain, CTA abdomen was then performed and showed no aortic dissection or aneurysm, small bowel containing ventral periumbilical hernia with no evidence of obstruction was noted along with an 8-mm mass in inferior right breast. Nonemergent mammogram was recommended. It was also noted the patient had mild pulmonary venous congestion. Chest x-ray showed mild pulmonary venous congestion, otherwise unremarkable. The patient was recently admitted in the hospital back in 02/2018 with chest pain and syncopal episode as well, during that hospital visit, her workup was found to be normal with normal nuclear stress test and normal echocardiogram. She also underwent an MRI during that visit and showed no evidence of acute intracranial process or mass. She was later discharged home with close outpatient followup with her PCP and her neurologist, through [facility]. Her blood pressure in the emergency department was found to be stable. Further lab work was obtained and showed a slightly elevated white count of 12.2 and a prolactin level of 44.56. Otherwise, further lab work was unremarkable. Troponin was found to be less than 0.010 and a BNP was found to be normal at 92.9. The patient had stated that she has been having some dysuria over the last couple of days, however, urinalysis was obtained and found to be unremarkable. The patient was given a gram of Tylenol in the emergency department along with a liter of normal saline and she was transferred to the stroke floor for further evaluation and monitoring of her symptoms. EKG was done and showed normal sinus rhythm with no ST-T wave changes. REVIEW OF SYSTEMS: All other systems reviewed and found to be negative unless mentioned in the HPI. PAST MEDICAL HISTORY: Significant for asthma, diabetes mellitus, seizure disorder, neurologic disease, and CVA x3. PAST SURGICAL HISTORY: Hysterectomy, tubal ligation, and rotator cuff left shoulder surgery. PAST PSYCHIATRIC HISTORY: Developmental disability, anxiety, and depression. SOCIAL HISTORY: The patient denies any alcohol, tobacco, or illicit drug use. FAMILY HISTORY: Family history is not significant. KNOWN ALLERGIES: Percocet and strawberries. CURRENT HOME MEDICATIONS: 1. Trileptal 750 mg oral twice daily. 2. Keppra 600 mg oral twice daily. 3. Lyrica 75 mg oral twice daily. 4. Metformin 1000 mg oral twice daily. 5. Prozac 20 mg oral once a day. PHYSICAL EXAMINATION: VITAL SIGNS: Blood pressure 161/92, pulse 82, respirations 16, temperature 98.5 degrees Fahrenheit, and O2 saturations 99% on room air. GENERAL: The patient is awake, alert, and oriented x3. No acute distress noted. HEENT: Atraumatic and normocephalic. Pupils are round and reactive to light. Extraocular muscles intact. Moist mucous membranes noted. NECK: Soft and supple. Trachea midline. CARDIOVASCULAR: Positive S1 and S2. Regular rate and rhythm. No murmur auscultated. RESPIRATORY: Clear to auscultation bilaterally. No wheezes, rales, or rhonchi. ABDOMEN: Soft, nontender. Bowel sounds present. No rebound. No rigidity. MUSCULOSKELETAL: Strength 5+ bilaterally in upper and lower extremities. Moves all extremities equal. Gait not assessed. Speech normal and intact. NEUROLOGIC: Cranial nerves 2 through 12 grossly intact. No focal deficits noted. PSYCHIATRIC: Good mood and affect. LABORATORY DATA: WBC 12.2, RBC 4.73, hemoglobin 13.4, and platelets 237. Sodium 140, potassium 3.6, carbon dioxide 22, anion gap 15, BUN 11, creatinine 0.73, and estimated GFR 88. AST 10, ALT 12, and alkaline phosphatase 85. Troponin less than 0.010. BNP 92.9, prolactin 44.56. DIAGNOSTIC IMAGING: CTA of chest and abdomen showed no aortic dissection or aneurysm, 8 mm mass in inferior right breast. Nonemergent mammogram is recommended. Chest x-ray showed mild pulmonary venous congestion. ASSESSMENT AND PLAN: 1. Seizure disorder. The patient will be continued on her home medications. We will check Keppra level along with trileptal level. We will order CT of head and consult Neurology Services for further evaluation and recommendations. The patient recently had a normal echocardiogram and MRI within the last 5 months. The prolactin level elevated at 44.56. We will place the patient in seizure precautions with frequent neuro-checks. Add IV hydralazine as needed for breakthrough seizures. Check TSH, drug screen, magnesium, and repeat some lipid, CBC and BMP in the morning. 2. Diabetes mellitus. We will place the patient on insulin sliding scale with Accu-Cheks. Also started on diabetic diet. 3. History of asthma. The patient currently asymptomatic at this time. We will add p.r.n. bronchodilators. 4. Deep venous thrombosis and gastrointestinal prophylaxis. 5. Code status, full code. 6. Surrogate decision maker is her sister, Geraldine. 7. Disposition pending further workup and clinical findings. Job ID: [id number]
[2018-08-23] MEDS: Sodium Chloride 0.9% 1,000 ML IV SCH ×2 (04:09→18:30)
[2018-08-23 07:55] LABS: #Eosinphils 0.2 thou/uL (0.0-0.7); #Lymphocytes 2.5 thou/uL (1.20-3.40); #Monocytes 0.5 thou/uL (0.11-0.59); #Neutrophils 3.2 thou/uL (1.40-6.50); %Basophils 0.7 % (0.0-1.0); %Eosinophils 2.4 % (0.0-10.0); %Lymphocytes 39.2 % (21.0-51.0); %Monocytes 7.6 % (0.0-10.0); %Neutrophils 50.2 % (42.0-75.0); Mean Corpuscular Hemoglobin 27.4 pg (27.0-31.0); Mean Corpuscular Volume 88.4 fL (78.0-98.0); Mean Platelet Volume 9.5 fL (7.4-10.4); Platelet Count 178 thou/uL (130-400); RBC Distribution Width 13.6 % (11.5-14.5); White Blood Cell (WBC) Count 6.5 thou/uL (4.8-10.8)
[2018-08-23 08:15] LABS: Anion Gap 12 mmol/L (10-20); BUN (Urea Nitrogen) 14 mg/dL (7.0-18.7); Calc. Creatinine Clearance 179 mL/min (70-130); Calcium 8.4 mg/dL (7.8-10.44); Carbon Dioxide 21 mmol/L (22-29); Cardiac Risk 4.1 (Less than 4.5); Chloride 111 mmol/L (98-107); Cholesterol 145 mg/dl (< 200 Desired); Estimated GFR-MDRD Greater than 90; Glucose 85 mg/dL (70-105); HDL Cholesterol 35 mg/dL (>60 Neg Risk); LDL Cholesterol, Calculated 96 mg/dL; Potassium 3.7 mmol/L (3.5-5.1); Sodium 140 mmol/L (136-145); Triglycerides 68 mg/dL (Less than 150)
[2018-08-23] MEDS ORDERED: levETIRAcetam 500 mg/5 ml Oral Solution PO SCH (09:00)
[2018-08-23] MEDS ORDERED: Enoxaparin Sodium 40 MG/0.4 ML SYRINGE SC SCH (09:00)
[2018-08-23] MEDS ORDERED: Polyethylene Glycol 3350 17 GM Packet PO SCH (09:00)
[2018-08-23] MEDS ORDERED: OXcarbazepine 300 MG/5 ML UDCUP PO SCH (09:00)
[2018-08-23] MEDS ORDERED: FLUoxetine HCl 20 MG CAP PO SCH (09:00)
[2018-08-23] MEDS ORDERED: Famotidine 20 MG TAB PO SCH (09:00)
--- NOTE | 2018-08-23 09:10 | CT ---
NONCONTRAST CT HEAD: 08/23/2018 HISTORY: Seizure disorder. The patient had a syncopal episode. COMPARISON: o03/27/2018 FINDINGS: There is no evidence of a hemorrhage, acute infarction, mass effect, or midline shift. Mild cerebral volume loss is present, not significantly changed from the prior exam. The ventricular system is no rmal in size, shape, and position for the degree of sulcal atrophy. The visualized paranasal sinuses and mastoid air cells are clear. The calvarial structures have a no rmal appearance. IMPRESSION: 1. No acute intracranial abnormalities demonstrated. 2. Cerebral volume loss, which is stable when compared to the study in 2018. POS: [facility]
[2018-08-23] MEDS ORDERED: Sodium Chloride 0.9% 1,000 ML IV SCH (09:45)
[2018-08-23] MEDS ORDERED: Fleet Enema 133 ML BOT PR SCH (09:45)
--- NOTE | 2018-08-23 10:32 | PDOC.PN ---
- Subjective Encounter Start Date: 08/23/18 Encounter Start Time: 09:15 Subjective: Patient examined, appears non-toxic -: Patient denies any seizure like activity overnight -: Reports constipation x1 week, reports passing flatus Denies any other complaints at this time - Objective Resuscitation Status - Order Detail: 08/22/18 22:57 Resuscitation Status Routine Co-Sign Provider: Resuscitation Status: FULL: Full Resuscitation Vital Signs & Weight: Vital Signs (12 hours) Temp Pulse Resp BP BP BP Pulse Ox 08/23/18 07:42 97.9 F 62 16 93/48 L 97 08/23/18 03:11 98.1 F 75 12 86/49 L 96 08/23/18 00:25 106/58 L 94/57 L 100/64 08/22/18 23:30 97.2 F L 95 16 128/79 95 Weight Weight 98.43 kg I&O: 08/22/18 08/23/18 08/24/18 06:59 06:59 06:59 Intake Total 250 Balance 250 Result Diagrams: 08/23/18 07:12 08/23/18 07:12 Additional Labs: Accuchecks 08/23/18 05:40 POC Glucose 85 Phys Exam - Physical Examination HEENT: PERRLA Neck: no nodes, no JVD Respiratory: clear to auscultation bilateral Cardiovascular: RRR Gastrointestinal: soft, non-tender, positive bowel sounds Musculoskeletal: no edema, pulses present Neurological: non-focal, normal sensation Lymphatic: no nodes Psychiatric: normal affect, A&O x 3 Skin: no rash, normal turgor Dx/Plan (1) Constipation Code(s): K59.00 - CONSTIPATION, UNSPECIFIED Status: Acute Plan: fleets enema and miralax (2) Seizure Code(s): R56.9 - UNSPECIFIED CONVULSIONS Status: Acute (3) Syncope Code(s): R55 - SYNCOPE AND COLLAPSE Status: Acute (4) DM type 2 (diabetes mellitus, type 2) Status: Acute Qualifiers: (5) GERD (gastroesophageal reflux disease) Code(s): K21.9 - GASTRO-ESOPHAGEAL REFLUX DISEASE WITHOUT ESOPHAGITIS Status: Chronic (6) Asthma Code(s): J45.909 - UNSPECIFIED ASTHMA, UNCOMPLICATED Status: Chronic - Plan cont current plan of care Awaiting neuro consult, CT with no new findings -: Drug screen negative, BP on the lower side today, asymptomatic, IV fluids -: Will continue to monitor and will check labs in AM * .ADDENDUM- * pt seen & examined by myself. agree w plan as above. DC home if Ok w Neurology and BP stable.May need to titrate BP meds down given low BP Review of Systems - Review of Systems Gastrointestinal: Constipation - Medications/Allergies Allergies/Adverse Reactions: Allergies Allergy/AdvReac Type Severity Reaction Status Date / Time nitrofurantoin Allergy Verified 03/27/18 19:33 [From Macrobid] strawberry Allergy Verified 06/07/17 19:51 acetaminophen [From Percocet] AdvReac Verified 08/22/18 23:45 oxycodone HCl [From Percocet] AdvReac Emesis Verified 03/27/18 19:33 Medications: Current Medications Acetaminophen (Tylenol) 650 mg PO Q4H PRN PRN Reason: Headache/Fever/Mild Pain (1-3) Dextrose/Water (Dextrose 50%) 25 gm SLOW IVP PRN PRN PRN Reason: Hypoglycemia Enoxaparin Sodium (Lovenox) 40 mg SC 0900 [facility] Famotidine (Pepcid) 20 mg PO BID [facility] Fluoxetine HCl (Prozac) 20 mg PO DAILY [facility] Glucagon (Glucagon) 1 mg IM PRN PRN PRN Reason: Hypoglycemia Dextrose/Water (D5w) 1,000 mls @ 0 mls/hr IV .Q0M PRN PRN Reason: Hypoglycemia Sodium Chloride (Normal Saline 0.9%) 1,000 mls @ 75 mls/hr IV .[id number] [facility] Stop: 08/24/18 04:01 Last Admin: 08/23/18 04:09 Dose: 1,000 mls Sodium Chloride (Normal Saline 0.9%) 1,000 mls @ 75 mls/hr IV .[id number] [facility] Stop: 08/24/18 09:46 Insulin Human Lispro (Humalog) 0 units SC .MILD SLIDING SCALE PRN PRN Reason: Mild Correctional Scale Insulin Human Lispro (Humalog) 0 units SC .BEDTIME SLIDING SC PRN PRN Reason: Bedtime Correctional Scale Ketorolac Tromethamine (Toradol) 15 mg IVP Q6H PRN PRN Reason: Pain Stop: 08/27/18 23:58 Last Admin: 08/23/18 08:42 Dose: 15 mg Levetiracetam (Keppra Oral Solution) 600 mg PO BID [facility] Lorazepam (Ativan) 2 mg SLOW IVP Q15MIN PRN PRN Reason: Seizures Ondansetron HCl (Zofran Odt) 4 mg PO Q6H PRN PRN Reason: Nausea/Vomiting Ondansetron HCl (Zofran) 4 mg IVP Q6H PRN PRN Reason: Nausea/Vomiting Oxcarbazepine (Trileptal) 750 mg PO BID [facility] Polyethylene Glycol (Miralax) 17 gm PO DAILY [facility] Senna/Docusate Sodium (Senokot S) 2 tab PO BID PRN PRN Reason: Constipation Sodium Biphosphate/Sodium Phosphate (Fleet Enema) 133 ml AL 0945 [facility] Stop: 08/24/18 12:00 Sodium Chloride (Flush - Normal Saline) 10 ml IVF Q12HR [facility] Sodium Chloride (Flush - Normal Saline) 10 ml IVF PRN PRN PRN Reason: Saline Flush
[2018-08-23 13:02] LABS: Troponin I Less than 0.010 ng/mL (< 0.028)
[2018-08-23 15:22] LABS: Troponin I Less than 0.010 ng/mL (< 0.028)
[2018-08-23 15:39] VITALS: TEMP 98.5
[2018-08-23 16:43] VITALS: BP 104/60
--- NOTE | 2018-08-24 11:05 | DIS ---
DATE OF ADMISSION: 08/22/2018 DATE OF DISCHARGE: 08/23/2018 PRIMARY CARE PHYSICIAN: Dr. Veliz. PROCEDURES: 1. The patient had a chest x-ray, which showed mild pulmonary venous congestion. 2. CT dissection. Impression, no aortic dissection or aneurysm or dilatation. Small bowel containing ventral periumbilical hernia without evidence of obstruction. An 8 mm mass in inferior right breast. Nonemergent mammography correlation recommended. Mild pulmonary venous congestion. Moderate sliding hiatal hernia. 3. Brain CT showed no acute intracranial abnormalities. Cerebral volume loss, stable when compared to study in 2018. HOSPITAL COURSE: Ms. Almazan is a 42-year-old female with a past medical history of a seizure disorder, diabetes type 2, asthma, history of CVAs x3. She was seen in the emergency room after having a syncopal episode. Family called EMS who brought the patient into the emergency room after a syncope episode. Upon arrival, patient was alert and oriented. No complaints of fever, chills, or dizziness. The patient reports that she had some chest pain and some abdominal pain. CTA of the abdomen and chest was performed, findings above. The patient had a similar episode in February 2018. Workup at that point was found to be normal with a normal nuclear stress test and a normal echocardiogram. She also underwent a head MRI during that visit and showed no evidence of acute intracranial process or mass. She was later discharged home at that point for close outpatient followup with her PCP and neurologist, Dr. Foreman. The patient's initial admission diagnosis was syncope, most likely a seizure. The patient is on Keppra and Trileptal. CT of the head was obtained. The patient felt much better on day of discharge, vital signs remained stable. The patient had no more syncopal/seizures while hospitalized. White blood cell count improved. Troponins x3 were undetectable. The patient was subsequently discharged to follow up with PCP and neurologist as an outpatient. ALLERGIES: MACROBID, STRAWBERRIES, TYLENOL, OXYCODONE. HOME MEDICATIONS: Restarted; 1. Celebrex 200 mg p.o. b.i.d. 2. Colace 100 mg p.o. b.i.d. 3. Prozac 20 mg p.o. daily. 4. Flonase 1 spray each nostril daily. 5. Keppra 750 mg p.o. b.i.d. 6. Glucophage 500 mg p.o. b.i.d. 7. Prilosec 40 mg p.o. b.i.d. 8. Trileptal 600 mg p.o. b.i.d. 9. Lyrica 75 mg p.o. b.i.d. 10. Zantac 300 mg p.o. at bedtime. 11. Spironolactone 25 mg p.o. daily. 12. Imitrex 100 mg p.o. q.2 hours as needed for headache. 13. Zanaflex 4 mg p.o. q.i.d. p.r.n. 14. On this visit, we did start MiraLAX 17 g p.o. daily as needed for constipation. DISCHARGE DIAGNOSES: 1. Seizure disorder. 2. Diabetes myelitis. 3. History of asthma. REVIEW OF SYSTEMS: The patient denied any chest pain, shortness of breath, abdominal pain, headache. Denied any further issues with syncope or seizures. All other systems reviewed and are negative unless mentioned in the HPI/hospital course. PHYSICAL EXAMINATION: VITAL SIGNS: Temperature is 98.5, pulse is 68, respirations 18, O2 sats are 98% on room air, blood pressure 104/60. CONSTITUTIONAL: The patient is in no apparent distress, is alert and oriented to person, place, and time. HEENT: Head is atraumatic and normocephalic. Eyes, pupils are equally round and reactive to light. Extraocular muscles are intact. ENT: Mucous membranes are moist. Mouth exam is normal. NECK: Normal range of motion. Trachea is midline. RESPIRATORY: Normal chest movement and it is symmetrical. Breath sounds are clear. CARDIOVASCULAR: Heart regular rate and rhythm. Heart sounds are normal. ABDOMEN: Nontender. Bowel sounds are heard. BACK: Normal inspection. Normal range of motion. No CVA tenderness. EXTREMITIES: Upper extremity, inspection is normal. Range of motion is normal. Radial pulses equal bilaterally. Lower extremity, normal inspection, normal range of motion. Pedal pulses equal bilaterally. 1+ swelling bilaterally. NEUROLOGIC: Left side arm and leg noted to have 2/5 strength. The patient is oriented to person, place, and time. No focal sensory deficits. SKIN: Warm, dry, normal in color. PSYCHIATRIC: The patient has a normal affect. DISCHARGE CONDITION: Stable. DISCHARGE DISPOSITION: The patient discharged home. DISCHARGE INSTRUCTIONS: The patient should follow up with Dr. Veliz in the next week. She should follow up with neurologist in the next 1 to 2 weeks. Follow up mammogram is highly recommended. The patient should ask PCP to get this ordered as a followup. Job ID: [id number]
--- NOTE | 2018-09-04 22:15 | EKG ---
Test Reason : Blood Pressure : / mmHG Vent. Rate : 094 BPM Atrial Rate : 094 BPM P-R Int : 148 ms QRS Dur : 070 ms QT Int : 352 ms P-R-T Axes : 038 040 034 degrees QTc Int : 440 ms Normal sinus rhythm Normal ECG Confirmed by ERICKA HILL MD ([id number]), editor managing director MAYCO THIBODEAUX ([id number]) on 09/04/2018 10:14:51 PM Referred By: Confirmed By:ERICKA HILL MD
== END 2018-08-23 18:50 | disposition home or self-care (01) ==
LOC: ERS 18:41 → 2SE 22:02
PROVIDERS: ADMIT Family Medicine; ATTEND Family Medicine
DX: G40.909 Epilepsy, unspecified, not intractable, without status epilepticus (principal); E11.9 Type 2 diabetes mellitus without complications; J45.909 Unspecified asthma, uncomplicated; R07.9 Chest pain, unspecified; R10.9 Unspecified abdominal pain; K59.00 Constipation, unspecified; R09.89 Other specified symptoms and signs involving the circulatory and respiratory systems; N63.10 Unspecified lump in the right breast, unspecified quadrant; K44.9 Diaphragmatic hernia without obstruction or gangrene; F41.8 Other specified anxiety disorders; Z86.73 Personal history of transient ischemic attack (TIA), and cerebral infarction without residual deficits; Z79.84 Long term (current) use of oral hypoglycemic drugs; Z79.899 Other long term (current) drug therapy; Z88.1 Allergy status to other antibiotic agents; Z88.5 Allergy status to narcotic agent; Z91.018 Allergy to other foods
CPT/HCPCS: 70450; 71045; 71275; 80048; 80061; 80177; 80183; 80306; 81003; 82962; 83735; 83880; 84146; 84484 ×3; 85025; 90686; 90732; 93005; 96372; 96374; 96376; 99285; G0008; G0009; G0378 ×2; 36415; 36416; 80053; 84443; 90471; 96360; J1650; J1885; J2060; Q9966

== ENCOUNTER 2018-09-08 10:27 | Outpatient (CLI) | payer MEDICARE, OTHER ==
--- NOTE | 2018-09-08 11:51 | ULT ---
RIGHT BREAST ULTRASOUND: HISTORY: Abnormality seen on CT in the inferior aspect of the right breast. The patient feels that she can fe el a mass at the 6 o'clock position of the right breast. The patient has a history of ovarian cancer status post hysterectomy. COMPARISON: Mammogram 09/08/[address] of the chest and abdomen 08/22/1028. TECHNIQUE: Multiplanar, castellanos scale, and color Doppler images were obtained in a right breast ultrasound with the area of palpable abnormality in the 6 o'clock position. FINDINGS: There is a well-circumscribed mass without shadowing at the 6 o'clock position of the right breast me asuring 7 mm in greatest dimension. This corresponds to the palpable abnormality and the abnormality on CT. IMPRESSION: Well-circumscribed mass in the right breast is nonspecific. This may or may not represent a fibroade noma. BIRADS category 4 - suspicious abnormality. An ultrasound-guided biopsy of the right breast m ass is recommended. This is discussed with the patient at the time of ultrasound. The patient was put in touch with the nurse navigator, Pilar, to help schedule her for an ultrasound-guided right breast mass biopsy. CODE CR POS: [facility]
--- NOTE | 2018-09-08 15:34 | MMO ---
MAMMO Bilat Diag [facility]. CLINICAL HISTORY: Patient is 42 years old and is seen for diagnostic exam and lump or thickening in the right breast at 6 o'clock. The patient has the following family history of breast cancer: aunt. The patient has a history of ovarian cancer at age 41. VIEWS: The views performed were: bilateral craniocaudal with tomosynthesis; bilateral mediolateral oblique with tomosynthesis; and bilateral mediolateral. FILMS COMPARED: The present examination has been compared to a prior imaging study performed at [facility] on 09/08/2018. MAMMOGRAM FINDINGS: There are scattered fibroglandular densities. There is an oval mass with circumscribed margins seen in the right breast at 6 o'clock. This mass was found to be solid on ultrasound and corresponds to the CT abnormality. IMPRESSION: MASS IN THE RIGHT BREAST IS SUSPICIOUS. AN ULTRASOUND-GUIDED BREAST BIOPSY IS RECOMMENDED. THE RESULTS OF THIS EXAM WERE SENT TO THE PATIENT. ACR BI-RADS Category 4 - Suspicious abnormality - biopsy should be considered MAMMOGRAPHY NOTE: 1. A negative mammogram report should not delay a biopsy if a dominant of clinically suspicious mass is present. 2. Approximately 10% to 15% of breast cancers are not detected by mammography. 3. Adenosis and dense breasts may obscure an underlying neoplasm.
== END 2018-09-08 10:28 | disposition home or self-care (01) ==
LOC: BICMAMMO 10:27
PROVIDERS: ATTEND Nurse Practitioner Family
DX: N63.14 Unspecified lump in the right breast, lower inner quadrant (principal); Z90.710 Acquired absence of both cervix and uterus; Z85.43 Personal history of malignant neoplasm of ovary
CPT/HCPCS: 76642; 77066; G0279

== ENCOUNTER → 2018-09-22 | Day surgery (SDC) | payer MEDICARE, OTHER ==
--- NOTE | 2018-09-22 13:53 | MMO ---
ULTRASOUND GUIDED BREAST BIOPSY PROSTPROCEDURE MAMMOGRAM: PREPROCEDURE DIAGNOSIS: Right breast 6 o'clock mass. POSTPROCEDURE DIAGNOSIS: Right breast 6 o'clock mass. PROCEDURE: Ultrasound-guided core biopsy of right breast mass. SENIOR ENGINEERING SPECIALIST: Dr. Rai. SPECIMEN: Five 14-gauge core biopsy specimens of right breast mass. ANESTHETIA: 5 mL of buffered 1% Lidocaine. TECHNIQUE: Prior to the procedure, the risks and benefits of an ultrasound-guided right breast biopsy were expla ined with the patient and she consented fully to the procedure. An ultrasound again identified the lesion at the 6 o'clock position of the right breast. The right b reast was prepped and draped in the usual sterile fashion. Lidocaine was used to anesthetize the ski n and soft tissues down to and around the mass. A small skin incision was made allowing for passage of the 14 gauge core biopsy device. The 14-gauge core biopsy device was then placed 5 separate times through the incision and 5 separate biopsies of the mass were obtained. These specimens were placed within formalin. There appeared to be adequate specimen present. A biopsy clip was then placed at the biopsy site. Pressure was held to maintain hemostasis. A postprocedure mammogram showed the biopsy clip within the right breast mass. There is a small amou nt of post biopsy hematoma at the biopsy site. IMPRESSION: Status post ultrasound-guided right breast mass biopsy. POS: [facility]
== END ==
LOC: BICULT 12:12
PROVIDERS: ATTEND Obstetrics & Gynecology
PROC: 0HBT3ZX Excision of Right Breast, Percutaneous Approach, Diagnostic (ICD-10-PCS; principal; 2018-09-22)
DX: N60.81 Other benign mammary dysplasias of right breast (principal); Z88.1 Allergy status to other antibiotic agents; Z88.5 Allergy status to narcotic agent; Z88.8 Allergy status to other drugs, medicaments and biological substances; Z91.018 Allergy to other foods
CPT/HCPCS: 19083; 88305

== ENCOUNTER 2018-10-31 18:01 | Emergency (ER) | payer MEDICARE, OTHER ==
[2018-10-31] MEDS ORDERED: Lorazepam 2 MG/ML VIAL ONE (18:33)
[2018-10-31] MEDS ORDERED: Ondansetron PF 4 MG/2 ML Vial ONE (18:56)
[2018-10-31 19:01] LABS: #Basophils 0.1 thou/uL (0.0-0.2); #Eosinphils 0.1 thou/uL (0.0-0.7); #Lymphocytes 3.1 thou/uL (1.20-3.40); #Monocytes 0.7 thou/uL (0.11-0.59); #Neutrophils 5.9 thou/uL (1.40-6.50); %Basophils 1.2 % (0.0-1.0); %Eosinophils 1.1 % (0.0-10.0); %Lymphocytes 31.3 % (21.0-51.0); %Monocytes 7.4 % (0.0-10.0); Hemoglobin 12.5 g/dL (12.0-16.0); Mean Corpuscular HGB CONC 33.6 g/dL (32.0-36.0); Mean Corpuscular Hemoglobin 28.9 pg (27.0-31.0); Mean Corpuscular Volume 85.9 fL (78.0-98.0); Mean Platelet Volume 10.2 fL (7.4-10.4); Platelet Count 243 thou/uL (130-400); RBC Distribution Width 14.2 % (11.5-14.5); Red Blood Cell (RBC) Count 4.34 mill/uL (4.20-5.40)
--- NOTE | 2018-10-31 19:14 | CT ---
Head CT without contrast 10/31/2018: COMPARISON: 08/23/2018 HISTORY: Syncope, fall, trauma TECHNIQUE: Axial CT imaging at 5 mm intervals from vertex through skull base without contrast FINDINGS: The visualized paranasal sinuses and mastoid air cells are well aerated. There is no displa sarah calvarial fracture. No intracranial hemorrhage, midline shift, mass effect, or ventricular enlargement. IMPRESSION: No intracranial hemorrhage or displaced calvarial fracture. No acute findings.
[2018-10-31 19:22] LABS: ALT (SGPT) 8 U/L (8-55); AST (SGOT) 11 U/L (5-34); Albumin 4.3 g/dL (3.5-5.0); Alkaline Phosphatase 84 U/L (40-150); Anion Gap 11 mmol/L (10-20); BUN (Urea Nitrogen) 12 mg/dL (7.0-18.7); Bilirubin, Total Less than 0.2 mg/dL (0.2-1.2); Calc. Creatinine Clearance 0 mL/min (70-130); Calcium 8.5 mg/dL (7.8-10.44); Carbon Dioxide 26 mmol/L (22-29); Chloride 104 mmol/L (98-107); Estimated GFR-MDRD 89; Globulin 3.2 g/dL (2.4-3.5); Glucose 82 mg/dL (70-105); Potassium 3.7 mmol/L (3.5-5.1); Protein, Total 7.5 g/dL (6.0-8.3); Sodium 137 mmol/L (136-145)
[2018-10-31 19:47] LABS: Bilirubin Negative (Negative); Blood, Urine Negative (Negative); Clarity CLEAR (Clear); Glucose, Urine (Dipstick) Negative (Negative); Leukocyte Negative (Negative); Nitrite Negative (Negative); Protein, Urine (Dipstick) Negative (Neg-Trace); Specific Gravity, Urine 1.026 (1.002-1.036); pH, Urine 6.5 (5.0-9.0)
[2018-10-31] MEDS ORDERED: Ketorolac Tromethamine 30 MG/ML VIAL ONE (19:57)
[2018-10-31] MEDS ORDERED: Dicyclomine 20 MG TAB ONE (19:57)
[2018-10-31] MEDS ORDERED: levETIRAcetam In NaCl (Iso-Os) 1,000 MG in Premix Bag 1 BAG IVPB SCH (20:15)
[2018-10-31] MEDS ORDERED: Guaifenesin DM 100-10/5 ML UDCUP PO SCH (21:30)
--- NOTE | 2018-11-06 14:23 | EKG ---
Test Reason : SYNCOPE Blood Pressure : / mmHG Vent. Rate : 085 BPM Atrial Rate : 085 BPM P-R Int : 138 ms QRS Dur : 076 ms QT Int : 388 ms P-R-T Axes : 043 038 041 degrees QTc Int : 461 ms Normal sinus rhythm Normal ECG Confirmed by PAM FERREIRA ([id number]), fan mail editor MAYCO THIBODEAUX ([id number]) on 11/06/2018 2:22:47 PM Referred By: BRANDON Confirmed By:PAM FERREIRA
== END 2018-10-31 22:23 | disposition home or self-care (01) ==
LOC: ERS 18:01
DX: J06.9 Acute upper respiratory infection, unspecified (principal); R55 Syncope and collapse; R56.9 Unspecified convulsions; K52.9 Noninfective gastroenteritis and colitis, unspecified; E11.9 Type 2 diabetes mellitus without complications; J45.909 Unspecified asthma, uncomplicated; Z86.73 Personal history of transient ischemic attack (TIA), and cerebral infarction without residual deficits; F41.9 Anxiety disorder, unspecified; Z79.899 Other long term (current) drug therapy; Z79.84 Long term (current) use of oral hypoglycemic drugs
CPT/HCPCS: 70450; 80053; 80177; 81003; 85025; 86850; 86900; 86901; 93005; 96361; 96365; 96372; 96375; J1885; J1953; J2060; J2405

== ENCOUNTER 2018-11-17 14:52 | Emergency (ER) | payer MEDICARE, OTHER ==
[2018-11-17 15:32] LABS: #Basophils 0.1 thou/uL (0.0-0.2); #Eosinphils 0.1 thou/uL (0.0-0.7); #Lymphocytes 2.3 thou/uL (1.20-3.40); #Monocytes 0.6 thou/uL (0.11-0.59); #Neutrophils 5.4 thou/uL (1.40-6.50); %Basophils 1.1 % (0.0-1.0); %Eosinophils 1.6 % (0.0-10.0); %Lymphocytes 26.4 % (21.0-51.0); %Monocytes 7.3 % (0.0-10.0); %Neutrophils 63.5 % (42.0-75.0); Hemoglobin 12.3 g/dL (12.0-16.0); Mean Corpuscular HGB CONC 32.9 g/dL (32.0-36.0); Mean Corpuscular Hemoglobin 27.9 pg (27.0-31.0); Mean Platelet Volume 9.7 fL (7.4-10.4); Platelet Count 219 thou/uL (130-400); RBC Distribution Width 14.2 % (11.5-14.5); White Blood Cell (WBC) Count 8.5 thou/uL (4.8-10.8)
--- NOTE | 2018-11-17 15:34 | RAD ---
CHEST 1 VIEW: COMPARISON: 08/22/2018. HISTORY: Dyspnea. Shortness of breath. FINDINGS: Heart size is normal. The lungs are clear. No pneumonia, edema, pleural effusion, or other acute pr ocess. IMPRESSION: No acute intrathoracic disease. POS: OFF
[2018-11-17 15:59] LABS: ALT (SGPT) 9 U/L (8-55); AST (SGOT) 10 U/L (5-34); Albumin 4.1 g/dL (3.5-5.0); Alkaline Phosphatase 76 U/L (40-150); Anion Gap 12 mmol/L (10-20); BUN (Urea Nitrogen) 11 mg/dL (7.0-18.7); Bilirubin, Total 0.3 mg/dL (0.2-1.2); Calc. Creatinine Clearance 0 mL/min (70-130); Calcium 8.5 mg/dL (7.8-10.44); Carbon Dioxide 23 mmol/L (22-29); Chloride 107 mmol/L (98-107); Estimated GFR-MDRD Greater than 90; Globulin 2.8 g/dL (2.4-3.5); Glucose 94 mg/dL (70-105); Potassium 3.6 mmol/L (3.5-5.1); Protein, Total 6.9 g/dL (6.0-8.3); Sodium 138 mmol/L (136-145)
[2018-11-17 17:19] LABS: Bilirubin Negative (Negative); Blood, Urine Negative (Negative); Clarity CLOUDY (Clear); Glucose, Urine (Dipstick) Negative (Negative); Leukocyte Negative (Negative); Nitrite Negative (Negative); Protein, Urine (Dipstick) Negative (Neg-Trace); Specific Gravity, Urine 1.009 (1.002-1.036)
[2018-11-17 18:29] LABS: Pregnancy Test - Urine (BHCG) Negative (Negative); Pregu Control Background? CLEAR/WHITE (CLR/WHITE); Pregu Control Bar Appear? YES (CONTROL BAR); Specific Gravity 1.009 (1.002-1.036)
--- NOTE | 2018-11-17 18:54 | CT ---
Contrast-enhanced images abdomen pelvis. HISTORY: Left-sided abdominal pain. Comparison made to previous exam from 12/27/2016. Contrast-enhanced CT images of the abdomen pelvis demonstrate the lung bases to be unremarkable. No evidence of free intraperitoneal air seen. The liver and spleen are unremarkable. A moderate size sliding hiatal hernia is seen. The pancreas is unremarkable. Adrenal glands and kidneys unremarkable. No evidence of periaortic lymphadenopathy seen. No dilated loops of small bowel seen. A moderate amount of stool seen in the colon. There is a large septated cystic and solid adnexal mass measuring 6.9 x 4.5 cm. This may represent le ft ovarian neoplasm correlate with gynecologic consultation. No evidence of periaortic lymphadenopathy seen. Umbilical hernia is present without evidence of obstruction. Impression: Complex large left adnexal mass. Left ovarian malignancy cannot be excluded.
[2018-11-17] MEDS ORDERED: Ibuprofen 200 MG TAB ONE (19:06)
== END 2018-11-17 21:32 | disposition home or self-care (01) ==
LOC: ERS 14:52
DX: N83.8 Other noninflammatory disorders of ovary, fallopian tube and broad ligament (principal); J45.909 Unspecified asthma, uncomplicated; E11.9 Type 2 diabetes mellitus without complications; F41.9 Anxiety disorder, unspecified; F32.9 Major depressive disorder, single episode, unspecified; Z79.899 Other long term (current) drug therapy; Z79.84 Long term (current) use of oral hypoglycemic drugs; Z86.73 Personal history of transient ischemic attack (TIA), and cerebral infarction without residual deficits
CPT/HCPCS: 36415; 71045; 74177; 80053; 81003; 81025; 84484; 85025; 93005; Q9966

== ENCOUNTER 2018-12-02 14:43 | Emergency (ER) | payer MEDICARE, OTHER ==
[2018-12-02] MEDS ORDERED: Ketorolac Tromethamine 30 MG/ML VIAL ONE (15:55)
[2018-12-02] MEDS ORDERED: Ondansetron PF 4 MG/2 ML Vial ONE (16:13)
[2018-12-02 16:25] LABS: #Basophils 0.1 thou/uL (0.0-0.2); #Eosinphils 0.1 thou/uL (0.0-0.7); #Lymphocytes 2.5 thou/uL (1.20-3.40); #Monocytes 0.6 thou/uL (0.11-0.59); #Neutrophils 6.9 thou/uL (1.40-6.50); %Basophils 0.7 % (0.0-1.0); %Eosinophils 1.5 % (0.0-10.0); %Lymphocytes 24.5 % (21.0-51.0); %Neutrophils 67.3 % (42.0-75.0); Hemoglobin 12.4 g/dL (12.0-16.0); Mean Corpuscular HGB CONC 33.8 g/dL (32.0-36.0); Mean Corpuscular Hemoglobin 28.5 pg (27.0-31.0); Mean Corpuscular Volume 84.3 fL (78.0-98.0); Mean Platelet Volume 9.8 fL (7.4-10.4); Platelet Count 260 thou/uL (130-400); RBC Distribution Width 14.6 % (11.5-14.5); Red Blood Cell (RBC) Count 4.35 mill/uL (4.20-5.40); White Blood Cell (WBC) Count 10.2 thou/uL (4.8-10.8)
--- NOTE | 2018-12-02 16:55 | ULT ---
Pelvic sonogram transabdominal and transvaginal imaging with duplex evaluation HISTORY: Pelvic pain. Prior hysterectomy and right oophorectomy. FINDINGS: Urinary bladder is incompletely distended. The uterus and right ovary are surgically absent . No free fluid. Multiple cysts arise from the left ovary, measuring up to 6.4 cm x 4.2 cm x 3.8 cm. Good color and sp ectral Doppler flow within the ovary. IMPRESSION: Large left ovarian cyst. Status post hysterectomy and right oophorectomy.
[2018-12-02] MEDS ORDERED: Morphine 4 MG/ML VIAL ONE (17:06)
[2018-12-02 17:40] LABS: BHCG - Serum Negative (NEGATIVE)
[2018-12-02 17:41] LABS: Pregs Control Background? CLEAR/WHITE (CLR/WHITE); Pregs Control Bar Appear? YES (CONTROL BAR)
[2018-12-02 17:49] LABS: Albumin 3.9 g/dL (3.5-5.0)
[2018-12-02 17:51] LABS: Calcium 8.8 mg/dL (7.8-10.44); Chloride 105 mmol/L (98-107); Potassium 4.3 mmol/L (3.5-5.1); Sodium 138 mmol/L (136-145)
[2018-12-02 17:52] LABS: Globulin 3.2 g/dL (2.4-3.5); Glucose 78 mg/dL (70-105); Protein, Total 7.1 g/dL (6.0-8.3)
[2018-12-02 17:53] LABS: Anion Gap 14 mmol/L (10-20); Carbon Dioxide 23 mmol/L (22-29)
[2018-12-02 17:54] LABS: Bilirubin, Total 0.2 mg/dL (0.2-1.2)
[2018-12-02 17:55] LABS: Alkaline Phosphatase 76 U/L (40-150); Calc. Creatinine Clearance 0 mL/min (70-130); Estimated GFR-MDRD Greater than 90
[2018-12-02 17:56] LABS: BUN (Urea Nitrogen) 11 mg/dL (7.0-18.7)
[2018-12-02 17:57] LABS: AST (SGOT) 15 U/L (5-34)
[2018-12-02 17:58] LABS: ALT (SGPT) 7 U/L (8-55); Lipase 22 U/L (8-78)
== END 2018-12-02 17:53 | disposition home or self-care (01) ==
LOC: ERS 14:43
DX: N83.202 Unspecified ovarian cyst, left side (principal); E11.9 Type 2 diabetes mellitus without complications; F41.9 Anxiety disorder, unspecified; F32.9 Major depressive disorder, single episode, unspecified; Z79.84 Long term (current) use of oral hypoglycemic drugs; Z79.899 Other long term (current) drug therapy
CPT/HCPCS: 36415; 76856; 80053; 83690; 84703; 85025; 96374; 96375; J1885; J2270; J2405

== ENCOUNTER 2018-12-15 08:59 | Observation (INO) | payer MEDICARE ==
--- NOTE | 2018-12-15 09:34 | RAD ---
AP view chest. HISTORY: Dyspnea. Comparison made to previous exam from 11/17/2018. AP view chest demonstrates pulmonary vascular congestion. Diffuse airspace opacities seen concerning for pulmonary edema. No definite evidence of effusion seen. IMPRESSION: pulmonary vascular congestion and airspace opacities.
[2018-12-15 09:47] LABS: #Eosinphils 0.2 thou/uL (0.0-0.7); #Lymphocytes 1.7 thou/uL (1.20-3.40); #Monocytes 0.6 thou/uL (0.11-0.59); #Neutrophils 6.1 thou/uL (1.40-6.50); %Basophils 0.4 % (0.0-1.0); %Eosinophils 2.2 % (0.0-10.0); %Neutrophils 70.4 % (42.0-75.0); Hemoglobin 9.7 g/dL (12.0-16.0); Mean Corpuscular HGB CONC 32.3 g/dL (32.0-36.0); Mean Corpuscular Hemoglobin 27.8 pg (27.0-31.0); Mean Corpuscular Volume 86.2 fL (78.0-98.0); Mean Platelet Volume 9.3 fL (7.4-10.4); Platelet Count 214 thou/uL (130-400); RBC Distribution Width 14.4 % (11.5-14.5); Red Blood Cell (RBC) Count 3.47 mill/uL (4.20-5.40); White Blood Cell (WBC) Count 8.7 thou/uL (4.8-10.8)
[2018-12-15] MEDS ORDERED: ISOVUE-370 76%-LOCM 1 ML ONE (09:49)
[2018-12-15 10:16] LABS: ALT (SGPT) 11 U/L (8-55); AST (SGOT) 12 U/L (5-34); Albumin 3.5 g/dL (3.5-5.0); Alkaline Phosphatase 62 U/L (40-150); BUN (Urea Nitrogen) 10 mg/dL (7.0-18.7); Bilirubin, Total 0.4 mg/dL (0.2-1.2); CK (CPK) 114 U/L (29-168); Calc. Creatinine Clearance 0 mL/min (70-130); Calcium 7.9 mg/dL (7.8-10.44); Carbon Dioxide 22 mmol/L (22-29); Chloride 104 mmol/L (98-107); Estimated GFR-MDRD Greater than 90; Globulin 2.5 g/dL (2.4-3.5); Glucose 91 mg/dL (70-105); Potassium 3.4 mmol/L (3.5-5.1); Sodium 140 mmol/L (136-145)
[2018-12-15 10:22] LABS: Anion Gap 17 mmol/L (10-20)
[2018-12-15] MEDS ORDERED: Ondansetron ODT 4 MG TAB ONE (11:05)
[2018-12-15] MEDS ORDERED: Furosemide 40 MG/4 ML VIAL ONE (11:14)
--- NOTE | 2018-12-15 13:34 | CT ---
CT ANGIOGRAM CHEST WITH 3D RENDERIN12/15/18 HISTORY: Dyspnea. Shortness of breath. COMPARISON: Abdomen and pelvic CT scan 11/17/18. FINDINGS: There are extensive bilateral alveolar and ground glass opacity changes throughout the right and left lungs. Evidence for bilateral atypical pneumonia or bilateral edema. Small bilateral pleural effusio ns. Evidence for moderate hiatal hernia with minimally dilated distal esophagus. No CT evidence for a cute pulmonary embolism. Some of the more smaller peripheral branches are less than optimally seen be cause of motion and bolus. Incidental note of some minimal calcific changes in both right and left ad renal glands. IMPRESSION: No convincing CT evidence for acute pulmonary embolism. Extensive alveolar and ground glass scattered opacity changes throughout both lungs concerning for atypical bilateral pneumonia versus bilateral edema. Small bilateral pleural effusions. Minimal hiatal hernia with some dilatation of the distal es ophagus. POS: [facility]
[2018-12-15 13:44] LABS: Troponin I 0.013 ng/mL (< 0.028)
[2018-12-15] MEDS ORDERED: Pot Chloride/Pot Bicarb/Cit Ac 25 mEq Effervescent Tablet PO SCH (14:15)
[2018-12-15] MEDS ORDERED: Acetaminophen 325 MG TAB PO PRN (15:14)
[2018-12-15] MEDS ORDERED: Ondansetron PF 4 MG/2 ML Vial IVP PRN (15:14)
[2018-12-15] MEDS ORDERED: Ondansetron ODT 4 MG TAB SL PRN (15:14)
[2018-12-15 16:37] VITALS: BMI 41.5
[2018-12-15] MEDS ORDERED: Dextrose 5% in Water 1,000 ML IV PRN (16:43)
[2018-12-15] MEDS ORDERED: HumaLOG 300 UNITS/3 ML VIAL SC PRN ×2 (16:43)
[2018-12-15] MEDS ORDERED: Dextrose 50% Abboject 50 ML SYRINGE SLOW IVP PRN (16:43)
[2018-12-15 16:56] LABS: Troponin I 0.018 ng/mL (< 0.028)
[2018-12-15] MEDS: HYDROcodone/Acetaminophen 10/325 mg Tablet PO PRN (17:00)
[2018-12-15] MEDS ORDERED: HYDROcodone/Acetaminophen 10/325 mg Tablet ONE (23:56)
[2018-12-16] MEDS ORDERED: HYDROcodone/Acetaminophen 10/325 mg Tablet ONE (06:05)
--- NOTE | 2018-12-16 08:26 | HP ---
PRIMARY CARE PHYSICIAN: Dr. Veliz. CHIEF COMPLAINT: Shortness of breath. HISTORY OF PRESENT ILLNESS: Ms. Almazan is a 43-year-old female, reported to the emergency room today, who reports that she has had a little bit of cough, mild shortness of breath the past few days. She also reports some intermittent chills. The patient reports that she feels like she has some phlegm, but is unable to cough anything up. Pertinent past medical history, she reports that she had surgery for an ovarian mass on Thursday, was discharged yesterday on Thursday, has over 30 jojo in her abdomen. They did a laparotomy and excised the ovary with the tumor. They were initially afraid that the tumor had wrapped around her intestines, but that was not the case. The patient reports that the tumor was deemed noncancerous. The patient does have a history of asthma. She denied any fever or chest pain. She denies smoking. While in the emergency room, she was given 40 of Lasix, Zofran ODT, and DuoNeb. She reports that she feels a little bit better. Shortness of breath has improved. Vital signs; she is 92% on room air, respiratory rate is 18, pulse is 83. She is afebrile at 97.5. She is nontoxic appearing. Her D-dimer was elevated in the emergency room, so CTA was performed. Impression, no convincing CT evidence of pulmonary emboli. Extensive alveolar ground-glass opacity scattered in both lungs concerning for atypical pneumonia versus bilateral edema. Small bilateral pleural effusions. Minimal hiatal hernia with some dilatation in the distal esophagus. Chemistry unremarkable except a potassium that was slightly decreased at 3.4 and BNP at 395. Troponins x3 were negative. Chest x-ray showed pulmonary vascular congestion and airspace opacities. White blood cell count 8.7, hemoglobin 9.7, hematocrit is 29.9. The patient was subsequently admitted to the observation unit for further management for possible new onset CHF. The patient had an echocardiogram done in February of 2018, which showed an EF of 60% to 65%. Normal diastolic heart function. She will be admitted for further management. PAST MEDICAL HISTORY: Significant for asthma, diabetes, seizure disorder, CVA x3, fibromyalgia. PAST SURGICAL HISTORY: Valvular surgery, oophorectomy, appendectomy, tubal ligation, abdominal hysterectomy, left shoulder repair. She was recently admitted to [facility] for ovarian torsion mass. PSYCHIATRIC HISTORY: Depression, development with delayed anxiety depression. SOCIAL HISTORY: Lives at home with family. Denies any alcohol or drug use. Has no smoking history. FAMILY HISTORY: Father does have a history of CHF. KNOWN ALLERGIES: Macrodantin, strawberries, oxycodone. HOME MEDICATIONS: 1. Fioricet 1 tab q.4 hours p.r.n. headache. 2. Prozac 20 mg p.o. daily. 3. Hydrocodone-Tylenol 10/325 q.6 hours p.r.n. pain. 4. Keppra 250 mg p.o. b.i.d. 5. Metformin 500 mg p.o. b.i.d. 6. Prilosec 20 mg p.o. daily. 7. Trileptal 600 mg p.o. b.i.d. 8. Lyrica 75 mg p.o. b.i.d. 9. Zantac 300 mg p.o. at bedtime. 10. Spironolactone 25 mg p.o. b.i.d. 11. Tizanidine 4 mg p.o. t.i.d. REVIEW OF SYSTEMS: The patient reports intermittent chills. Denies fever. Does have a sore throat. Reports cough. Reports shortness of breath. Reports nausea. Reports vomiting. Reports back pain with cough. All other systems reviewed and are negative unless mentioned in the HPI. PHYSICAL EXAMINATION: VITAL SIGNS: Blood pressure is 136/86, pulse is 86, PO2 sats are 99% on room air, temp is 98.2. CONSTITUTIONAL: The patient is nontoxic appearing, appears pain free, alert and oriented to person, place, and time. HEENT: Head is normocephalic, atraumatic. Eyes; eyelids are normal to inspection. Pupils are equal, round, and reactive to light. ENT; mouth exam is normal. Mucous membranes are moist. NECK: Normal range of motion. Trachea is midline. RESPIRATORY/CHEST: There are some scattered rhonchi. No rales or any respiratory distress noted. CARDIOVASCULAR: Regular heart rate and rhythm. Heart sounds are normal. ABDOMEN: Female, tender along incision line, which traverses vertically and has 47 jojo. Suture line is approximated, is healing with some pink. No obvious signs of any infection. Bowel sounds are heard. BACK: Normal inspection, normal range of motion. EXTREMITIES: Upper extremities, normal range of motion. Sensation intact. Radial pulses are normal. Lower extremity, normal inspection. Normal range of motion. Motor strength is normal. Pedal pulses are equal. No trace edema is noted. NEURO: The patient is oriented to person, place, and time. Speech is normal. Gait is normal. No focal motor or sensory deficits. SKIN: Warm, dry, normal in color. PLAN AND ASSESSMENT: 1. Dyspnea. CTA with bilateral ground opacities, which could represent either pneumonia or pulmonary edema. Last echo did not show any signs of diastolic dysfunction. We will repeat the echocardiogram. The patient does feel better after she received neb and some Lasix in the emergency room. She is currently afebrile, is nontoxic appearing. Does not appear in any respiratory distress. White blood count is within normal limits. BNP is slightly elevated from last time it was checked. She has some trace edema. We will repeat the Lasix in the a.m. Repeat labs. Ordered incentive spirometry. The patient does have a history of asthma, so we have ordered DuoNeb q.6, although bilateral pneumonia is certainly within the realm of possibility, considering she was recently hospitalized. We will recheck labs in the morning. Repeat the echo and see where we are. 2. Recent abdominal surgery for ovarian mass. Incision looks intact, healing. 3. Diabetes. We are going to hold metformin for now. Check blood sugars before meals and at bedtime. Add a sliding scale for coverage as needed. 4. Seizure disorder. We will continue home medications. Deep vein thrombosis and gastrointestinal prophylaxis have been started. DISPOSITION: Pending further workup and clinical findings. Job ID: [id number]
[2018-12-16] MEDS: Famotidine 20 MG TAB PO SCH ×2 (09:03→21:18)
[2018-12-16] MEDS: OXcarbazepine 300 MG TAB PO SCH ×3 (09:03→21:18)
[2018-12-16] MEDS: levETIRAcetam 500 MG TAB PO SCH ×3 (09:03→21:18)
[2018-12-16] MEDS: Spironolactone 25 MG TAB PO SCH ×3 (09:04→21:20)
[2018-12-16] MEDS: Pregabalin 75 MG CAP PO SCH ×3 (09:04→21:19)
[2018-12-16] MEDS: Senokot S 8.6-50 MG TAB PO SCH ×3 (09:04→21:19)
[2018-12-16] MEDS: FLUoxetine HCl 20 MG CAP PO SCH (09:45)
[2018-12-16] MEDS: Enoxaparin Sodium 40 MG/0.4 ML SYRINGE SC SCH (09:46)
[2018-12-16] MEDS: Furosemide 40 MG/4 ML VIAL SLOW IVP SCH (09:46)
--- NOTE | 2018-12-16 10:38 | PDOC.PN ---
- Subjective Encounter Start Date: 12/16/18 Encounter Start Time: 10:00 Subjective: Patient examined today, family at bedside -: Patient reports "hard time breathing" overnight -: Reports using her IS. Reports she is "not ready to go home" - Objective Vital Signs & Weight: Vital Signs (12 hours) Temp Pulse Resp BP Pulse Ox 12/16/18 08:05 98.0 F 75 16 107/53 L 98 Weight Weight 93.395 kg I&O: 12/15/18 12/16/18 12/17/18 06:59 06:59 06:59 Intake Total 480 Balance 480 Result Diagrams: 12/15/18 09:29 12/15/18 09:29 Additional Labs: Accuchecks 12/16/18 12/15/18 12/15/18 06:10 20:42 16:47 POC Glucose 111 H 96 102 Phys Exam - Physical Examination HEENT: PERRLA, moist MMs Neck: no nodes, no JVD Respiratory: clear to auscultation bilateral Appears in no respiratory distress, is speaking in complete sentences Cardiovascular: RRR Gastrointestinal: soft, non-tender incision is warm, dry, intact, no s/s of infections Musculoskeletal: no edema, pulses present, edema present Neurological: non-focal, normal sensation, moves all 4 limbs Lymphatic: no nodes Psychiatric: normal affect, A&O x 3 Dx/Plan (1) Dyspnea Code(s): R06.00 - DYSPNEA, UNSPECIFIED Status: Acute Qualifiers: Dyspnea type: shortness of breath Qualified Code(s): R06.02 - Shortness of breath; R06.00 - Dyspnea, unspecified; R06.01 - Orthopnea (2) DM type 2 (diabetes mellitus, type 2) Status: Chronic Qualifiers: (3) Asthma Code(s): J45.909 - UNSPECIFIED ASTHMA, UNCOMPLICATED Status: Chronic (4) GERD (gastroesophageal reflux disease) Code(s): K21.9 - GASTRO-ESOPHAGEAL REFLUX DISEASE WITHOUT ESOPHAGITIS Status: Chronic (5) Morbid obesity with BMI of 40.0-44.9, adult Code(s): E66.01 - MORBID (SEVERE) OBESITY DUE TO EXCESS CALORIES; Z68.41 - BODY MASS INDEX (BMI) 40.0-44.9, ADULT Status: Chronic - Plan cont current plan of care, PT/OT, incentive spirometry, out of bed/ambulate Echo pending today, Neb treatments, needs to ambulate, use IS -: Lasix given today, patient states she was able to urinate quite a bit -: Will continue to assess, hopefully home tomorrow if continues to improve -: Patient reports she had a hard time "breathing", nurses notes states she -: did not have any overnight events * .
[2018-12-16 15:18] LABS: #Basophils 0.1 thou/uL (0.0-0.2); #Eosinphils 0.4 thou/uL (0.0-0.7); #Lymphocytes 2.6 thou/uL (1.20-3.40); #Monocytes 0.5 thou/uL (0.11-0.59); #Neutrophils 6.9 thou/uL (1.40-6.50); %Basophils 1.1 % (0.0-1.0); %Eosinophils 3.5 % (0.0-10.0); %Lymphocytes 24.9 % (21.0-51.0); %Monocytes 4.4 % (0.0-10.0); %Neutrophils 66.1 % (42.0-75.0); Hemoglobin 10.5 g/dL (12.0-16.0); Mean Corpuscular HGB CONC 32.2 g/dL (32.0-36.0); Mean Corpuscular Hemoglobin 27.9 pg (27.0-31.0); Mean Corpuscular Volume 86.6 fL (78.0-98.0); Mean Platelet Volume 9.4 fL (7.4-10.4); Platelet Count 269 thou/uL (130-400); RBC Distribution Width 14.6 % (11.5-14.5); Red Blood Cell (RBC) Count 3.77 mill/uL (4.20-5.40); White Blood Cell (WBC) Count 10.4 thou/uL (4.8-10.8)
[2018-12-16 15:37] LABS: Anion Gap 16 mmol/L (10-20); BUN (Urea Nitrogen) 16 mg/dL (7.0-18.7); Calc. Creatinine Clearance 146 mL/min (70-130); Calcium 8.9 mg/dL (7.8-10.44); Carbon Dioxide 28 mmol/L (22-29); Chloride 99 mmol/L (98-107); Estimated GFR-MDRD 85; Glucose 125 mg/dL (70-105); Potassium 3.2 mmol/L (3.5-5.1); Sodium 140 mmol/L (136-145)
[2018-12-16] MEDS: HYDROcodone/Acetaminophen 10/325 mg Tablet PO PRN (15:47)
[2018-12-16] MEDS ORDERED: Azithromycin 250 MG TAB PO SCH (17:00)
[2018-12-17 08:04] LABS: #Basophils 0.1 thou/uL (0.0-0.2); #Eosinphils 0.3 thou/uL (0.0-0.7); #Lymphocytes 2.6 thou/uL (1.20-3.40); #Monocytes 0.5 thou/uL (0.11-0.59); #Neutrophils 5.9 thou/uL (1.40-6.50); %Basophils 0.5 % (0.0-1.0); %Eosinophils 3.7 % (0.0-10.0); %Lymphocytes 27.3 % (21.0-51.0); %Monocytes 5.5 % (0.0-10.0); Hemoglobin 10.1 g/dL (12.0-16.0); Mean Corpuscular HGB CONC 32.1 g/dL (32.0-36.0); Mean Corpuscular Hemoglobin 27.7 pg (27.0-31.0); Mean Corpuscular Volume 86.6 fL (78.0-98.0); Mean Platelet Volume 9.3 fL (7.4-10.4); Platelet Count 270 thou/uL (130-400); RBC Distribution Width 15.1 % (11.5-14.5); Red Blood Cell (RBC) Count 3.64 mill/uL (4.20-5.40); White Blood Cell (WBC) Count 9.4 thou/uL (4.8-10.8)
--- NOTE | 2018-12-17 08:24 | RAD ---
Chest 2 views HISTORY: Dyspnea. COMPARISON: 12/15/2018. FINDINGS: Cardiac silhouette is unremarkable. Vasculature is less engorged than on the previous exam. Mediastinum is midline. No confluent airspace consolidation, pneumothorax, or pleural fluid. bus monitor leads overlie the chest. IMPRESSION: Significant normal improvement in radiographic appearance of pulmonary vascular congestio n. No new abnormalities.
[2018-12-17 08:26] LABS: ALT (SGPT) 13 U/L (8-55); AST (SGOT) 11 U/L (5-34); Albumin 3.5 g/dL (3.5-5.0); Alkaline Phosphatase 60 U/L (40-150); Anion Gap 17 mmol/L (10-20); BUN (Urea Nitrogen) 19 mg/dL (7.0-18.7); Bilirubin, Total 0.3 mg/dL (0.2-1.2); Calc. Creatinine Clearance 166 mL/min (70-130); Calcium 8.6 mg/dL (7.8-10.44); Carbon Dioxide 21 mmol/L (22-29); Chloride 103 mmol/L (98-107); Estimated GFR-MDRD Greater than 90; Globulin 3.2 g/dL (2.4-3.5); Glucose 111 mg/dL (70-105); Potassium 3.5 mmol/L (3.5-5.1); Protein, Total 6.7 g/dL (6.0-8.3); Sodium 137 mmol/L (136-145)
[2018-12-17] MEDS ORDERED: Azithromycin 250 MG TAB PO SCH (09:00)
[2018-12-17] MEDS: OXcarbazepine 300 MG TAB PO SCH (09:07)
[2018-12-17] MEDS: Pregabalin 75 MG CAP PO SCH (09:07)
[2018-12-17] MEDS: FLUoxetine HCl 20 MG CAP PO SCH (09:07)
[2018-12-17] MEDS: levETIRAcetam 500 MG TAB PO SCH (09:07)
[2018-12-17] MEDS: HYDROcodone/Acetaminophen 10/325 mg Tablet PO PRN (09:08)
[2018-12-17] MEDS: Furosemide 40 MG/4 ML VIAL SLOW IVP SCH (09:09)
[2018-12-17] MEDS: Enoxaparin Sodium 40 MG/0.4 ML SYRINGE SC SCH (09:09)
[2018-12-17] MEDS: Senokot S 8.6-50 MG TAB PO SCH (09:09)
[2018-12-17] MEDS: Spironolactone 25 MG TAB PO SCH (09:09)
[2018-12-17 12:37] VITALS: BP 120/76; TEMP 98.6
--- NOTE | 2018-12-18 17:09 | EKG ---
Test Reason : SOB Blood Pressure : / mmHG Vent. Rate : 087 BPM Atrial Rate : 087 BPM P-R Int : 140 ms QRS Dur : 086 ms QT Int : 380 ms P-R-T Axes : 050 040 042 degrees QTc Int : 457 ms Normal sinus rhythm Normal ECG Confirmed by CATHERINE KUHN DO ([id number]), scientific editor LAWANDA ATWOOD ([id number]) on 12/18/2018 5:08:50 PM Referred By: Confirmed By:CATHERINE KUHN DO
== END 2018-12-17 14:41 | disposition home or self-care (01) ==
LOC: ERS 08:59 → 2SW 12:44
PROVIDERS: ADMIT Internal Medicine; ATTEND Internal Medicine
DX: R06.02 Shortness of breath (principal); J45.909 Unspecified asthma, uncomplicated; E11.9 Type 2 diabetes mellitus without complications; G40.909 Epilepsy, unspecified, not intractable, without status epilepticus; K21.9 Gastro-esophageal reflux disease without esophagitis; F41.9 Anxiety disorder, unspecified; F32.9 Major depressive disorder, single episode, unspecified; I08.1 Rheumatic disorders of both mitral and tricuspid valves; E66.01 Morbid (severe) obesity due to excess calories; Z68.41 Body mass index [BMI] 40.0-44.9, adult; Z88.1 Allergy status to other antibiotic agents; Z86.73 Personal history of transient ischemic attack (TIA), and cerebral infarction without residual deficits; Z88.5 Allergy status to narcotic agent; Z91.018 Allergy to other foods; Z79.84 Long term (current) use of oral hypoglycemic drugs; Z79.899 Other long term (current) drug therapy
CPT/HCPCS: 71045; 71046; 71275; 80048; 80053 ×2; 82550; 82962 ×3; 83880; 84484 ×2; 85025 ×3; 85379; 87040; 90732; 93005; 93306; 94640 ×3; 96372 ×2; 96374; 96376 ×2; 97139 ×2; 99285; G0009; G0378 ×2; 36415; 36416; 90471; J1650; J1940; J7620; Q0162; Q9966

== ENCOUNTER 2019-04-20 11:58 | Emergency (ER) | payer MEDICARE ==
[2019-04-20 12:45] LABS: Hemoglobin 11.2 g/dL (12.0-16.0); Mean Corpuscular HGB CONC 32.2 g/dL (32.0-36.0); Mean Corpuscular Volume 80.8 fL (78.0-98.0); Mean Platelet Volume 9.8 fL (7.4-10.4); Platelet Count 200 thou/uL (130-400); RBC Distribution Width 16.9 % (11.5-14.5); White Blood Cell (WBC) Count 19.5 thou/uL (4.8-10.8)
--- NOTE | 2019-04-20 12:55 | RAD ---
EXAM: Chest PA and lateral: HISTORY: Cough COMPARISON: 12/17/1989 FINDINGS: Heart: Normal cardiac silhouette Aorta: Unremarkable Pulmonary vessels: Normal Costophrenic angles: Costophrenic angles are clear. Lungs: No masses or consolidation in the right lung. Patchy interstitial and alveolar opacities in th e left lung. Pneumothorax: No pneumothorax Osseous structures: No osseous abnormalities IMPRESSION: Patchy interstitial and alveolar opacities in the left lung. Correlate for infiltrate. Continued surv eillance is recommended.
[2019-04-20 13:00] LABS: Band 8 % (5-11); Lymphocytes 13 % (21-51); MDiff Complete? YES; Monocytes 3 % (0-10); Neutrophil 74 % (42-75); Platelet Morphology Comment Appears Adequate; Polychromasia SLIGHT = 2-3 cells (100X) (0-2/hpf); Promyelocytes 1 % (0-0); Reactive Lymphocytes 1 % (0-10)
[2019-04-20 13:00] LABS: Bilirubin Negative (Negative); Blood, Urine Negative (Negative); Clarity Clear (Clear); Glucose, Urine (Dipstick) Normal (Negative); Leukocyte Negative Leu/uL (Negative); Nitrite Negative (Negative); Protein, Urine (Dipstick) 30 mg/dL (Neg-Trace); RBC/HPF 0-3 HPF (0-3); WBC/HPF 0-3 HPF (0-3)
[2019-04-20 13:05] LABS: ALT (SGPT) 8 U/L (8-55); AST (SGOT) 8 U/L (5-34); Albumin 3.7 g/dL (3.5-5.0); Alkaline Phosphatase 74 U/L (40-110); Anion Gap 12 mmol/L (10-20); BUN (Urea Nitrogen) 13 mg/dL (7.0-18.7); Bilirubin, Total 0.6 mg/dL (0.2-1.2); Calc. Creatinine Clearance 0 mL/min (70-130); Calcium 8.1 mg/dL (7.8-10.44); Carbon Dioxide 23 mmol/L (22-29); Chloride 104 mmol/L (98-107); Estimated GFR-MDRD 84; Globulin 3.1 g/dL (2.4-3.5); Glucose 90 mg/dL (70-105); Potassium 3.3 mmol/L (3.5-5.1); Protein, Total 6.8 g/dL (6.0-8.3); Sodium 136 mmol/L (136-145)
[2019-04-20 13:11] LABS: Bacteria/HPF 1+ HPF (None Seen)
== END 2019-04-20 15:00 | disposition home or self-care (01) ==
LOC: ERS 11:58
DX: R56.9 Unspecified convulsions (principal); J18.9 Pneumonia, unspecified organism; E87.6 Hypokalemia; J45.909 Unspecified asthma, uncomplicated; E11.9 Type 2 diabetes mellitus without complications; F41.9 Anxiety disorder, unspecified; F32.9 Major depressive disorder, single episode, unspecified; Z79.84 Long term (current) use of oral hypoglycemic drugs; Z79.899 Other long term (current) drug therapy; Z79.51 Long term (current) use of inhaled steroids
CPT/HCPCS: 36415; 71046; 80053; 80177; 81003; 81015; 85025; 93005; 96360

== ENCOUNTER 2019-05-06 13:04 | Emergency (ER) | payer MEDICARE ==
--- NOTE | 2019-05-06 13:26 | RAD ---
CHEST 1 VIEW: HISTORY: Cough. COMPARISON: Radiograph of 04/20/2019. FINDINGS: Improved aeration of the lungs. No pneumothorax. No effusion. Right lateral costophrenic sulcus blunting is similar and may reflect a prior scar. IMPRESSION: Interval improved aeration of the lungs suggesting improved pneumonia. POS: [facility]
[2019-05-06 14:20] LABS: #Eosinphils 0.2 thou/uL (0.0-0.7); #Lymphocytes 1.5 thou/uL (1.20-3.40); #Monocytes 0.6 thou/uL (0.11-0.59); #Neutrophils 2.6 thou/uL (1.40-6.50); %Eosinophils 3.6 % (0.0-10.0); %Lymphocytes 30.9 % (21.0-51.0); %Monocytes 11.8 % (0.0-10.0); %Neutrophils 52.8 % (42.0-75.0); Hemoglobin 12.8 g/dL (12.0-16.0); Mean Corpuscular HGB CONC 31.1 g/dL (32.0-36.0); Mean Corpuscular Hemoglobin 26.2 pg (27.0-31.0); Mean Corpuscular Volume 84.1 fL (78.0-98.0); Mean Platelet Volume 9.7 fL (7.4-10.4); Platelet Count 251 thou/uL (130-400); RBC Distribution Width 16.9 % (11.5-14.5); Red Blood Cell (RBC) Count 4.87 mill/uL (4.20-5.40); White Blood Cell (WBC) Count 4.9 thou/uL (4.8-10.8)
[2019-05-06 14:40] LABS: ALT (SGPT) 11 U/L (8-55); AST (SGOT) 9 U/L (5-34); Albumin 4.1 g/dL (3.5-5.0); Alkaline Phosphatase 90 U/L (40-110); Anion Gap 13 mmol/L (10-20); BUN (Urea Nitrogen) 10 mg/dL (7.0-18.7); Bilirubin, Total 0.3 mg/dL (0.2-1.2); Calc. Creatinine Clearance 0 mL/min (70-130); Calcium 8.3 mg/dL (7.8-10.44); Carbon Dioxide 23 mmol/L (22-29); Chloride 107 mmol/L (98-107); Estimated GFR-MDRD 88; Globulin 3.2 g/dL (2.4-3.5); Glucose 106 mg/dL (70-105); Potassium 3.2 mmol/L (3.5-5.1); Protein, Total 7.3 g/dL (6.0-8.3); Sodium 140 mmol/L (136-145)
== END 2019-05-06 15:30 | disposition home or self-care (01) ==
LOC: ERS 13:04
DX: R05 Cough (principal); J45.909 Unspecified asthma, uncomplicated; E11.9 Type 2 diabetes mellitus without complications; F41.9 Anxiety disorder, unspecified; F32.9 Major depressive disorder, single episode, unspecified; Z86.73 Personal history of transient ischemic attack (TIA), and cerebral infarction without residual deficits
CPT/HCPCS: 36415; 71045; 80053; 85025; 93005

== ENCOUNTER 2019-06-05 21:29 | Emergency (ER) | payer MEDICARE ==
[2019-06-05 22:03] LABS: #Basophils 0.1 thou/uL (0.0-0.2); #Eosinphils 0.1 thou/uL (0.0-0.7); #Lymphocytes 3.2 thou/uL (1.20-3.40); #Monocytes 0.6 thou/uL (0.11-0.59); #Neutrophils 6.8 thou/uL (1.40-6.50); %Eosinophils 0.8 % (0.0-10.0); %Lymphocytes 29.2 % (21.0-51.0); %Monocytes 5.8 % (0.0-10.0); %Neutrophils 63.2 % (42.0-75.0); Hemoglobin 12.6 g/dL (12.0-16.0); Mean Corpuscular HGB CONC 32.3 g/dL (32.0-36.0); Mean Corpuscular Hemoglobin 26.8 pg (27.0-31.0); Mean Corpuscular Volume 82.9 fL (78.0-98.0); Mean Platelet Volume 9.3 fL (7.4-10.4); Platelet Count 331 thou/uL (130-400); RBC Distribution Width 15.7 % (11.5-14.5); White Blood Cell (WBC) Count 10.8 thou/uL (4.8-10.8)
--- NOTE | 2019-06-05 22:10 | RAD ---
Chest one view HISTORY: Chest pain. COMPARISON: 05/06/2019. FINDINGS: Cardiac silhouette is unremarkable. Pulmonary vasculature slightly engorged with widespread reticulonodular interstitial prominence. No lobar consolidation or evidence of pneumothorax. hot dipper leads overlie the chest. IMPRESSION: Mild pulmonary vascular congestion.
[2019-06-05 22:21] LABS: ALT (SGPT) 11 U/L (8-55); AST (SGOT) 11 U/L (5-34); Albumin 4.6 g/dL (3.5-5.0); Alkaline Phosphatase 80 U/L (40-110); Anion Gap 13 mmol/L (10-20); BUN (Urea Nitrogen) 14 mg/dL (7.0-18.7); Bilirubin, Total 0.2 mg/dL (0.2-1.2); CK (CPK) 90 U/L (29-168); Calc. Creatinine Clearance 0 mL/min (70-130); Calcium 9.1 mg/dL (7.8-10.44); Carbon Dioxide 26 mmol/L (22-29); Chloride 103 mmol/L (98-107); Estimated GFR-MDRD 79; Globulin 3.5 g/dL (2.4-3.5); Glucose 122 mg/dL (70-105); Lipase 15 U/L (8-78); Potassium 3.1 mmol/L (3.5-5.1); Protein, Total 8.1 g/dL (6.0-8.3); Sodium 139 mmol/L (136-145)
[2019-06-05] MEDS ORDERED: Aspirin Chewable 81 MG TAB ONE (22:26)
[2019-06-05] MEDS ORDERED: Nitroglycerin 2% Ointment 1 INCH/1 GM Packet ONE (22:26)
[2019-06-05 23:17] LABS: Bilirubin Negative (Negative); Blood, Urine Negative (Negative); Clarity Clear (Clear); Glucose, Urine (Dipstick) Normal (Negative); Leukocyte Negative Leu/uL (Negative); Nitrite Negative (Negative); Protein, Urine (Dipstick) 20 mg/dL (Neg-Trace); Urobilinogen Normal mg/dL (Less than 2)
== END 2019-06-06 01:08 | disposition home or self-care (01) ==
LOC: ERS 21:29
DX: R07.9 Chest pain, unspecified (principal); R56.9 Unspecified convulsions; J45.909 Unspecified asthma, uncomplicated; E11.9 Type 2 diabetes mellitus without complications; F41.9 Anxiety disorder, unspecified; F32.9 Major depressive disorder, single episode, unspecified; Z86.73 Personal history of transient ischemic attack (TIA), and cerebral infarction without residual deficits
CPT/HCPCS: 36415; 71045; 80053; 81003; 82550; 83690; 83880; 84484; 85025; 93005

== ENCOUNTER 2021-03-16 18:16 | Emergency (ER) | payer MEDICARE, OTHER ==
[~2021-03-16 18:16] MED LIST changes: -ISOVUE-370 76%-LOCM 1 ML ONE; +Iopamidol-370 76% 500 ML 1 ML ONE
[2021-03-16] MEDS ORDERED: Ondansetron PF 4 MG/2 ML Vial ONE (19:15)
[2021-03-16] MEDS ORDERED: Morphine 4 MG/ML VIAL ONE (19:15)
[2021-03-16 19:16] LABS: #Basophils 0.1 thou/uL (0.0-0.2); #Eosinphils 0.1 thou/uL (0.0-0.7); #Lymphocytes 2.8 thou/uL (1.20-3.40); #Monocytes 0.6 thou/uL (0.11-0.59); #Neutrophils 6.8 thou/uL (1.40-6.50); %Basophils 0.7 % (0.0-1.0); %Eosinophils 1.3 % (0.0-10.0); %Lymphocytes 26.6 % (21.0-51.0); %Monocytes 5.7 % (0.0-10.0); %Neutrophils 65.7 % (42.0-75.0); Hemoglobin 14.2 g/dL (12.0-16.0); Mean Corpuscular HGB CONC 34.4 g/dL (32.0-36.0); Mean Corpuscular Hemoglobin 30.2 pg (27.0-31.0); Mean Corpuscular Volume 87.8 fL (78.0-98.0); Mean Platelet Volume 9.1 fL (7.4-10.4); Platelet Count 197 thou/uL (130-400); RBC Distribution Width 13.4 % (11.5-14.5); Red Blood Cell (RBC) Count 4.69 mill/uL (4.20-5.40); White Blood Cell (WBC) Count 10.4 thou/uL (4.8-10.8)
[2021-03-16 19:30] LABS: BHCG - Serum Negative (NEGATIVE); Pregs Control Background? CLEAR/WHITE (CLR/WHITE); Pregs Control Bar Appear? YES (CONTROL BAR)
[2021-03-16 19:46] LABS: ALT (SGPT) 11 U/L (8-55); AST (SGOT) 10 U/L (5-34); Alkaline Phosphatase 73 U/L (40-110); Anion Gap 14 mmol/L (10-20); BUN (Urea Nitrogen) 15 mg/dL (7.0-18.7); Bilirubin, Total Less than 0.2 mg/dL (0.2-1.2); Calc. Creatinine Clearance 0 mL/min (70-130); Calcium 8.6 mg/dL (7.8-10.44); Carbon Dioxide 24 mmol/L (22-29); Chloride 105 mmol/L (98-107); Globulin 3.4 g/dL (2.4-3.5); Glucose 117 mg/dL (70-105); Lipase 26 U/L (8-78); Potassium 3.7 mmol/L (3.5-5.1); Protein, Total 7.4 g/dL (6.0-8.3); Sodium 139 mmol/L (136-145)
[2021-03-16 22:18] LABS: Bacteria/HPF 4+ HPF (None Seen); Bilirubin Negative (Negative); Blood, Urine Negative (Negative); Clarity Clear (Clear); Glucose, Urine (Dipstick) Normal (Negative); Ketone, Urine Negative (Negative); Leukocyte 75 Leu/uL (Negative); Nitrite 2+ (Negative); Protein, Urine (Dipstick) 10 mg/dL (Neg-Trace); RBC/HPF 0-3 HPF (0-3); Renal Epithelial 0-3 HPF (None Seen); Specific Gravity, Urine 1.023 (1.002-1.036); Squamous Epithelial 0-3 HPF (0-3); Urobilinogen Normal mg/dL (Less than 2); WBC/HPF 21-50 HPF (0-3); pH, Urine 7.5 (5.0-9.0)
== END 2021-03-16 23:24 | disposition home or self-care (01) ==
LOC: ERS 18:16
DX: N30.90 Cystitis, unspecified without hematuria (principal); K21.9 Gastro-esophageal reflux disease without esophagitis; E11.9 Type 2 diabetes mellitus without complications; Z86.73 Personal history of transient ischemic attack (TIA), and cerebral infarction without residual deficits; J43.9 Emphysema, unspecified; M79.604 Pain in right leg
CPT/HCPCS: 36415; 74177; 80053; 81003; 81015; 83605; 83690; 84703; 85025; 96374; 96375; J2270; J2405; Q9967

== ENCOUNTER 2021-10-01 08:17 | Outpatient (CLI) | payer MEDICARE, OTHER ==
[2021-10-02 00:44] LABS: SARS-CoV-2 PCR by NAA Not Detected (NotDetected)
== END 2021-10-01 08:18 | disposition home or self-care (01) ==
LOC: LABBT 08:17
PROVIDERS: ATTEND Internal Medicine
DX: K22.70 Barrett's esophagus without dysplasia (principal); K59.09 Other constipation; R13.10 Dysphagia, unspecified; Z20.822 Contact with and (suspected) exposure to COVID-19
CPT/HCPCS: U0003; U0005